=== PATIENT | male | born 1970 | race Caucasian/White ===

== ENCOUNTER 2016-08-21 14:22 | Emergency (ER) | payer OTHER ==
[2016-08-21 14:33] VITALS: RESP 18
[2016-08-21 14:58] LABS: Basophils % (A) 1 %; CH 30.9; CHCM 34.5; Eosinophils # (A) 0.1 k/uL (0-0.7); Eosinophils % (A) 2 %; HCT 46.9 % (39.0-53.0); HDW 2.65; HGB 15.4 gm/dL (13.0-17.5); Luc # (Auto) 0.13; Luc % (Auto) 2; Lymphocytes # (A) 1.5 k/uL (1.0-4.8); Lymphocytes % (A) 26 %; MCH 29.6 pg (25.0-35.0); MCHC 32.9 g/dL (31.0-37.0); MCV 89.9 fL (80.0-100.0); Mean Platelet Volume 8.7; Monocytes # (A) 0.4 k/uL (0-1.0); Monocytes % (A) 6 %; Neutrophils # (A) 3.7 k/uL (1.3-7.7); Neutrophils % (A) 62 %; RBC 5.21 m/uL (4.30-5.90); RDW 12.9 % (11.5-15.5); WBC 5.9 k/uL (3.8-10.6); WBC (Perox) 5.69
[2016-08-21 15:07] LABS: ALT 63 U/L (21-72); AST 33 U/L (17-59); Alkaline Phosphatase 91 U/L (38-126); Anion Gap 13 mmol/L; Blood Urea Nitrogen 16 mg/dL (9-20); Calcium 9.4 mg/dL (8.4-10.2); Carbon Dioxide 23 mmol/L (22-30); Chloride 104 mmol/L (98-107); Glucose 147 mg/dL (74-99); Magnesium 1.4 mg/dL (1.6-2.3); Non-African American GFR(MDRD) >60 (>60 ml/min/1.73 sqM); Sodium 140 mmol/L (137-145); Total Bilirubin 0.6 mg/dL (0.2-1.3); Total Protein 7.5 g/dL (6.3-8.2)
[2016-08-21 15:08] LABS: Partial Thromboplastin Time 24.3 sec (22.0-30.0); Prothrombin Time 10.6 sec (9.0-12.0)
--- NOTE | 2016-08-21 15:08 | ED ---
Chest Pain HPI - General Chief Complaint: Chest Pain Stated Complaint: SOB/Chest Pain Time Seen by Provider: 08/21/16 14:28 Source: patient, RN notes reviewed Mode of arrival: wheelchair Limitations: no limitations - History of Present Illness Initial Comments: Is a 45-year-old male with a history of heart disease and a quadruple bypass who states he had the onset about one hour prior to admission of retrosternal chest tightness. He states was low-grade in severity didn't really get worse with movement or activity was associated hour with shortness of breath. He states it started over and hour prior to admission and actually did not resolve until he was in the emergency department and placed on oxygen. He states it felt very similar to what he had with his prior SC prior to his bypass. He denies any cough phlegm fevers chills or sweats. No other complaints MD Complaint: chest pain - Related Data Home Medications Medication Instructions Recorded Confirmed Diltiazem HCl [Diltiazem 24Hr ER] 120 mg PO DAILY 04/20/16 08/21/16 Furosemide [Lasix] 40 mg PO DAILY PRN 04/20/16 08/21/16 Nitroglycerin Sl Tabs [Nitrostat] 0.4 mg SL Q5M PRN 04/20/16 08/21/16 Metoprolol Tartrate [Lopressor] 50 mg PO BID 08/21/16 08/21/16 Previous Rx's Medication Instructions Recorded Aspirin 81 mg PO DAILY #30 chew 06/04/15 Atorvastatin [Lipitor] 80 mg PO DAILY #30 tab 06/04/15 Clopidogrel [Plavix] 75 mg PO DAILY #30 tab 06/04/15 Allergies Allergy/AdvReac Type Severity Reaction Status Date / Time No Known Allergies Allergy Verified 08/21/16 14:53 Review of Systems ROS Statement: Those systems with pertinent positive or pertinent negative responses have been documented in the HPI. ROS Other: All systems not noted in ROS Statement are negative. EKG Findings - EKG Results: EKG: interpreted by TNAIA (Sinus rhythm with a rate of 78 MI interval 166 QRS duration 108 daily since QTC of 354/43 old inferior changes no acute ST-T wave elevation or depression seen at this time.) Past Medical History Past Medical History: Chest Pain / Angina, Hyperlipidemia, Hypertension, Myocardial Infarction ([place]), Osteoarthritis ([place]) Additional Past Medical History / Comment(s): 9-15-15 STEMI -WENT TO [employer]- RECEIVED STENT TO CIRC. GOUT, ARTHRITIS IN HANDS. STATED CAN'T DRINK MILK(GETS SEVERE UPSET STOMACH) BUT CAN EAT CHEESE Last Myocardial Infarction Date:: 04/28/2015 History of Any Multi-Drug Resistant Organisms: None Reported Past Surgical History: Coronary Bypass/CABG, Heart Catheterization With Stent, Orthopedic Surgery Additional Past Surgical History / Comment(s): 04-28-15 HEART CATH,STENT TO CIRC , 06/04/16 4 vessel CABG, RT KNEE ARTHROSOCPY.WISDOM TEETH Past Anesthesia/Blood Transfusion Reactions: No Reported Reaction Additional Past Anesthesia/Blood Transfusion Reaction / Comment(s): patient states he has never had a blood transfusion. Date of Last Stent Placement:: 04/28/15 Past Psychological History: No Psychological Hx Reported Additional Psychological History / Comment(s): 2008 HAD A FEW PANIC ATTATCKS NONE SINCE. 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 Smoking Status: Former smoker Past Alcohol Use History: None Reported Additional Past Alcohol Use History / Comment(s): STARTED SMOKING AT AGE 23- WORKED UP TO 3 PPD, QUIT 2006. PT states he has had no alcohol since 04/28/15. Past Drug Use History: Marijuana Additional Drug Use History / Comment(s): Pt states he smokes marijuana on occasion. last smoked couple days ago to help with sleep. - Past Family History Father Family Medical History: Congestive Heart Failure (CHF), COPD, Coronary Artery Disease (CAD), Diabetes Mellitus, Myocardial Infarction ([place]) Additional Family Medical History / Comment(s): EMPHYSEMA Mother Family Medical History: Skin Disorder Additional Family Medical History / Comment(s): ECTODERMAL DYSPLAGIA, ORTHOPEDIC SX General Exam - General Exam Comments Initial Comments: This is a well-developed well-nourished awake alert oriented times 3 male Limitations: no limitations General appearance: alert, in no apparent distress Head exam: Present: atraumatic, normocephalic, normal inspection Eye exam: Present: normal appearance, PERRL, EOMI. Absent: scleral icterus, conjunctival injection, periorbital swelling ENT exam: Present: normal exam, mucous membranes moist Neck exam: Present: normal inspection. Absent: tenderness, meningismus, lymphadenopathy Respiratory exam: Present: normal lung sounds bilaterally. Absent: respiratory distress, wheezes, rales, rhonchi, stridor Cardiovascular Exam: Present: regular rate, normal rhythm, normal heart sounds. Absent: systolic murmur, diastolic murmur, rubs, gallop, clicks GI/Abdominal exam: Present: soft, normal bowel sounds. Absent: distended, tenderness, guarding, rebound, rigid Extremities exam: Present: normal inspection, full ROM, normal capillary refill. Absent: tenderness, pedal edema, joint swelling, calf tenderness Back exam: Present: normal inspection Neurological exam: Present: alert, oriented X3, CN II-XII intact Psychiatric exam: Present: normal affect, normal mood Skin exam: Present: warm, dry, intact, normal color. Absent: rash Course Vital Signs 08/21/16 08/21/16 14:27 15:28 Temperature 98.0 F Pulse Rate 83 68 Respiratory 18 Rate Blood Pressure 136/63 112/62 O2 Sat by Pulse 96 95 Oximetry Chest Pain MDM - MDM I did review the x-ray report no acute findings. The patient is pain-free and was given all information regarding his labs and x-rays. He does not want to be admitted although I did offer him admission. He is agreed to accept the responsibility for any adverse outcomes. He will instead follow up with his doctor next week. He was cautioned to return if any problems for any recurrent chest pain. He was noted be hypomagnesemic he will be taking supplements he has had this happen to him before. Disposition Clinical Impression: Chest pain, Hypomagnesemia Disposition: HOME SELF-CARE Condition: Good Instructions: Chest Pain (ED)
[2016-08-21] MEDS ORDERED: ASPIRIN 81 MG CHEW PO STA (15:12)
[2016-08-21 15:16] LABS: Creatine Kinase 129 U/L (55-170)
--- NOTE | 2016-08-21 15:23 | XR ---
EXAMINATION TYPE: XR chest 2V DATE OF EXAM: 08/21/2016 3:10 PM COMPARISON: 04/20/2016 HISTORY: Chest pain TECHNIQUE: Frontal and lateral views of the chest are obtained. FINDINGS: Heart and mediastinum are normal. Lungs are clear of consolidation. There is no evidence o f pleural effusion. There are no hilar masses. There is no heart failure. There are sternal wires. IMPRESSION: No active cardiopulmonary disease. Mild fibrotic changes noted at the left lung base. No change compared to old exam.
[2016-08-21 15:30] LABS: Troponin I <0.012 ng/mL (0.000-0.034)
[2016-08-21 16:51] VITALS: BP 113/58; PULSE 58; TEMP 97.8
== END 2016-08-21 16:51 | disposition home or self-care (01) ==
LOC: EC 14:22
DX: R07.89 Other chest pain (principal); E83.42 Hypomagnesemia; I10 Essential (primary) hypertension; I25.2 Old myocardial infarction; E78.5 Hyperlipidemia, unspecified; M19.042 Primary osteoarthritis, left hand; M19.041 Primary osteoarthritis, right hand; F12.90 Cannabis use, unspecified, uncomplicated; Z87.891 Personal history of nicotine dependence; Z95.1 Presence of aortocoronary bypass graft; Z95.5 Presence of coronary angioplasty implant and graft; Z79.82 Long term (current) use of aspirin; Z79.02 Long term (current) use of antithrombotics/antiplatelets
CPT/HCPCS: 36415; 71020; 80053; 82550; 82553; 83735; 84484; 85025; 85610; 85730; 93005; 99285

== ENCOUNTER 2016-08-28 11:20 | Observation (INO) | payer OTHER ==
[2016-08-28] MEDS ORDERED: SODIUM CHLORIDE 0.9% 500 ML IV STA (11:34)
[2016-08-28] MEDS ORDERED: SODIUM CHLORIDE 0.9% 1,000 ML IV STA (11:34)
--- NOTE | 2016-08-28 11:35 | ED ---
General Adult HPI - General Chief complaint: Arrhythmia/Palpitations Stated complaint: HTN,fast heart rate Time Seen by Provider: 08/28/16 11:33 Source: patient, RN notes reviewed, old records reviewed Mode of arrival: wheelchair Limitations: no limitations - History of Present Illness Initial comments: This is a 45-year-old male the ER for evaluation of chest pain, palpitations. Patient does have significant heart disease history with CABG, CAD. Patient has no recent nausea or vomiting, no recent fevers, no recent shortness of breath, or congestion, no recent travel history. Patient is taking all medications as prescribed. Patient was in hospital about a week ago for exact similar symptoms. Patient states this time is present with elevated heart rate which she was more concerned about. No new medications, no stopping of any prior medications - Related Data Home Medications Medication Instructions Recorded Confirmed Diltiazem HCl [Diltiazem 24Hr ER] 120 mg PO DAILY 04/20/16 08/28/16 Furosemide [Lasix] 40 mg PO DAILY PRN 04/20/16 08/28/16 Nitroglycerin Sl Tabs [Nitrostat] 0.4 mg SUBLINGUAL Q5M PRN 04/20/16 08/28/16 Metoprolol Tartrate [Lopressor] 50 mg PO BID 08/21/16 08/28/16 Aspirin EC [Ecotrin Low Dose] 81 mg PO DAILY 08/28/16 08/28/16 Atorvastatin [Lipitor] 80 mg PO HS 08/28/16 08/28/16 Magnesium Oxide [Mag-Ox] 250 mg PO HS 08/28/16 08/28/16 Previous Rx's Medication Instructions Recorded Clopidogrel [Plavix] 75 mg PO DAILY #30 tab 06/04/15 Allergies Allergy/AdvReac Type Severity Reaction Status Date / Time No Known Allergies Allergy Verified 08/28/16 12:08 Review of Systems ROS Statement: Those systems with pertinent positive or pertinent negative responses have been documented in the HPI. ROS Other: All systems not noted in ROS Statement are negative. 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 GOUT, ARTHRITIS IN HANDS. STATED CAN'T DRINK MILK(GETS SEVERE UPSET STOMACH) BUT CAN EAT CHEESE Last Myocardial Infarction Date:: 04/28/2015 History of Any Multi-Drug Resistant Organisms: None Reported Past Surgical History: Coronary Bypass/CABG, Heart Catheterization With Stent, Orthopedic Surgery Additional Past Surgical History / Comment(s): 04-28-15 HEART CATH,STENT TO CIRC , 06/04/16 4 vessel CABG, RT KNEE ARTHROSOCPY.WISDOM TEETH Past Anesthesia/Blood Transfusion Reactions: No Reported Reaction Additional Past Anesthesia/Blood Transfusion Reaction / Comment(s): patient states he has never had a blood transfusion. Date of Last Stent Placement:: 04/28/15 Past Psychological History: No Psychological Hx Reported Additional Psychological History / Comment(s): 2007 HAD A FEW PANIC ATTATCKS NONE SINCE. 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 Smoking Status: Former smoker Past Alcohol Use History: None Reported Additional Past Alcohol Use History / Comment(s): STARTED SMOKING AT AGE 23- WORKED UP TO 3 PPD, QUIT 2006. PT states he has had no alcohol since 04/28/15. Past Drug Use History: Marijuana Additional Drug Use History / Comment(s): Pt states he smokes marijuana on occasion. last smoked couple days ago to help with sleep. - Past Family History Father Family Medical History: Congestive Heart Failure (CHF), COPD, Coronary Artery Disease (CAD), Diabetes Mellitus, Myocardial Infarction ([place]) Additional Family Medical History / Comment(s): EMPHYSEMA Mother Family Medical History: Skin Disorder Additional Family Medical History / Comment(s): ECTODERMAL DYSPLAGIA, ORTHOPEDIC SX General Exam Limitations: no limitations General appearance: alert, in no apparent distress, anxious Head exam: Present: atraumatic, normocephalic, normal inspection Eye exam: Present: normal appearance, PERRL, EOMI. Absent: scleral icterus, conjunctival injection, periorbital swelling ENT exam: Present: normal exam, mucous membranes moist Neck exam: Present: normal inspection. Absent: tenderness, meningismus, lymphadenopathy Respiratory exam: Present: normal lung sounds bilaterally. Absent: respiratory distress, wheezes, rales, rhonchi, stridor Cardiovascular Exam: Present: normal rhythm, tachycardia, normal heart sounds. Absent: systolic murmur, diastolic murmur, rubs, gallop, clicks GI/Abdominal exam: Present: soft, normal bowel sounds. Absent: distended, tenderness, guarding, rebound, rigid Extremities exam: Present: normal inspection, full ROM, normal capillary refill. Absent: tenderness, pedal edema, joint swelling, calf tenderness Back exam: Present: normal inspection Neurological exam: Present: alert, oriented X3, CN II-XII intact Psychiatric exam: Present: normal affect, normal mood Skin exam: Present: warm, dry, intact, normal color. Absent: rash Course Vital Signs 08/28/16 08/28/16 08/28/16 11:25 11:46 12:34 Temperature 96.9 F L Pulse Rate 120 H 97 70 Respiratory 18 18 18 Rate Blood Pressure 145/87 140/63 139/58 O2 Sat by Pulse 94 L 97 96 Oximetry - Reevaluation(s) Reevaluation #1: 08/28/16 14:05 For the most part at this time patient remains improved, asymptomatic EKG Findings - EKG Comments: EKG Findings:: EKG shows sinus tachycardia rate 110, [place] 154, QRS 104, QTC 438 Medical Decision Making - Medical Decision Making 45 the ER with significant history of heart disease, coming in with chest pain and tachycardia and palpitations. She was here last week for similar symptoms and discharged home, patient had recurrence of symptoms today. EKG initially is negative, troponin is negative a patient with history of CABG will be admitted for cardiac enzymes, serial testing and admission - Lab Data Result diagrams: 08/28/16 11:45 08/28/16 11:45 Lab Results 08/28/16 08/28/16 08/28/16 Range/Units 11:45 11:45 11:45 WBC 5.8 (3.8-10.6) k/uL RBC 5.22 (4.30-5.90) m/uL Hgb 15.4 (13.0-17.5) gm/dL Hct 46.0 (39.0-53.0) % MCV 88.1 (80.0-100.0) fL MCH 29.4 (25.0-35.0) pg MCHC 33.4 (31.0-37.0) g/dL RDW 13.2 (11.5-15.5) % Plt Count 153 (150-450) k/uL Neutrophils % 56 % Lymphocytes % 28 % Monocytes % 8 % Eosinophils % 3 % Basophils % 1 % Neutrophils # 3.3 (1.3-7.7) k/uL Lymphocytes # 1.6 (1.0-4.8) k/uL Monocytes # 0.5 (0-1.0) k/uL Eosinophils # 0.2 (0-0.7) k/uL Basophils # 0.1 (0-0.2) k/uL PT (9.0-12.0) sec INR (<1.1) APTT (22.0-30.0) sec D-Dimer (<0.60) mg/L FEU Sodium 143 (137-145) mmol/L Potassium 4.1 (3.5-5.1) mmol/L Chloride 105 (98-107) mmol/L Carbon Dioxide 24 (22-30) mmol/L Anion Gap 14 mmol/L BUN 17 (9-20) mg/dL Creatinine 1.00 (0.66-1.25) mg/dL Est GFR (MDRD) Af Amer >60 (>60 ml/min/1.73 sqM) Est GFR (MDRD) Non-Af >60 (>60 ml/min/1.73 sqM) Glucose 132 H (74-99) mg/dL Calcium 9.5 (8.4-10.2) mg/dL Phosphorus 2.5 (2.5-4.5) mg/dL Magnesium 1.8 (1.6-2.3) mg/dL Total Bilirubin 0.7 (0.2-1.3) mg/dL AST 41 (17-59) U/L ALT 69 (21-72) U/L Alkaline Phosphatase 106 (38-126) U/L Total Creatine Kinase 161 (55-170) U/L CK-MB (CK-2) 1.3 (0.0-2.4) ng/mL CK-MB (CK-2) Rel Index 0.8 Troponin I <0.012 (0.000-0.034) ng/mL Total Protein 8.0 (6.3-8.2) g/dL Albumin 4.3 (3.5-5.0) g/dL Lipase 83 (23-300) U/L Urine Color Urine Appearance (Clear) Urine pH (5.0-8.0) Ur Specific [place] (1.001-1.035) Urine Protein (Negative) Urine Glucose (UA) (Negative) Urine Ketones (Negative) Urine Blood (Negative) Urine Nitrate (Negative) Urine Bilirubin (Negative) Urine Urobilinogen (<2.0) mg/dL Ur Leukocyte Esterase (Negative) 08/28/16 08/28/16 Range/Units 11:45 12:39 WBC (3.8-10.6) k/uL RBC (4.30-5.90) m/uL Hgb (13.0-17.5) gm/dL Hct (39.0-53.0) % MCV (80.0-100.0) fL MCH (25.0-35.0) pg MCHC (31.0-37.0) g/dL RDW (11.5-15.5) % Plt Count (150-450) k/uL Neutrophils % % Lymphocytes % % Monocytes % % Eosinophils % % Basophils % % Neutrophils # (1.3-7.7) k/uL Lymphocytes # (1.0-4.8) k/uL Monocytes # (0-1.0) k/uL Eosinophils # (0-0.7) k/uL Basophils # (0-0.2) k/uL PT 10.1 (9.0-12.0) sec INR 1.0 (<1.1) APTT 23.7 (22.0-30.0) sec D-Dimer 0.42 (<0.60) mg/L FEU Sodium (137-145) mmol/L Potassium (3.5-5.1) mmol/L Chloride (98-107) mmol/L Carbon Dioxide (22-30) mmol/L Anion Gap mmol/L BUN (9-20) mg/dL Creatinine (0.66-1.25) mg/dL Est GFR (MDRD) Af Amer (>60 ml/min/1.73 sqM) Est GFR (MDRD) Non-Af (>60 ml/min/1.73 sqM) Glucose (74-99) mg/dL Calcium (8.4-10.2) mg/dL Phosphorus (2.5-4.5) mg/dL Magnesium (1.6-2.3) mg/dL Total Bilirubin (0.2-1.3) mg/dL AST (17-59) U/L ALT (21-72) U/L Alkaline Phosphatase (38-126) U/L Total Creatine Kinase (55-170) U/L CK-MB (CK-2) (0.0-2.4) ng/mL CK-MB (CK-2) Rel Index Troponin I (0.000-0.034) ng/mL Total Protein (6.3-8.2) g/dL Albumin (3.5-5.0) g/dL Lipase (23-300) U/L Urine Color Yellow Urine Appearance Clear (Clear) Urine pH 5.5 (5.0-8.0) Ur Specific [place] 1.021 (1.001-1.035) Urine Protein Trace H (Negative) Urine Glucose (UA) Negative (Negative) Urine Ketones Negative (Negative) Urine Blood Negative (Negative) Urine Nitrate Negative (Negative) Urine Bilirubin Negative (Negative) Urine Urobilinogen 2.0 (<2.0) mg/dL Ur Leukocyte Esterase Negative (Negative) - Radiology Data Radiology results: report reviewed, image reviewed Critical Care Time Critical Care Time: Yes Total Critical Care Time: 31 Disposition Clinical Impression: Chest pain Disposition: ADMITTED IP TO THIS [facility] Condition: Undetermined Referrals: Noel Nieves DO [Primary Care Provider] - 1-2 days
[2016-08-28 12:02] LABS: Basophils # (A) 0.1 k/uL (0-0.2); Basophils % (A) 1 %; CH 30.4; CHCM 34.7; Eosinophils # (A) 0.2 k/uL (0-0.7); Eosinophils % (A) 3 %; HDW 2.64; HGB 15.4 gm/dL (13.0-17.5); Luc # (Auto) 0.24; Luc % (Auto) 4; Lymphocytes # (A) 1.6 k/uL (1.0-4.8); Lymphocytes % (A) 28 %; MCH 29.4 pg (25.0-35.0); MCHC 33.4 g/dL (31.0-37.0); MCV 88.1 fL (80.0-100.0); Mean Platelet Volume 8.8; Monocytes # (A) 0.5 k/uL (0-1.0); Monocytes % (A) 8 %; Neutrophils # (A) 3.3 k/uL (1.3-7.7); Neutrophils % (A) 56 %; RBC 5.22 m/uL (4.30-5.90); RDW 13.2 % (11.5-15.5); WBC 5.8 k/uL (3.8-10.6)
--- NOTE | 2016-08-28 12:06 | XR ---
EXAMINATION TYPE: XR chest 2V DATE OF EXAM: 08/28/2016 11:56 AM COMPARISON: 08/21/2016 HISTORY: 45-year-old male with a chest pressure and weakness TECHNIQUE: PA and lateral views FINDINGS: Median sternotomy wires are present. Heart remains upper limits of normal in size. Aorta within jim l limits. Diffuse interstitial prominence is unchanged. No consolidation or pleural effusion. IMPRESSION: Chronic changes without acute cardiopulmonary process.
[2016-08-28 12:12] LABS: ALT 69 U/L (21-72); AST 41 U/L (17-59); Alkaline Phosphatase 106 U/L (38-126); Anion Gap 14 mmol/L; Blood Urea Nitrogen 17 mg/dL (9-20); Calcium 9.5 mg/dL (8.4-10.2); Carbon Dioxide 24 mmol/L (22-30); Chloride 105 mmol/L (98-107); Glucose 132 mg/dL (74-99); Magnesium 1.8 mg/dL (1.6-2.3); Non-African American GFR(MDRD) >60 (>60 ml/min/1.73 sqM); Phosphorous 2.5 mg/dL (2.5-4.5); Potassium 4.1 mmol/L (3.5-5.1); Sodium 143 mmol/L (137-145); Total Bilirubin 0.7 mg/dL (0.2-1.3)
[2016-08-28 12:23] LABS: Creatine Kinase 161 U/L (55-170)
[2016-08-28 12:26] LABS: Partial Thromboplastin Time 23.7 sec (22.0-30.0); Prothrombin Time 10.1 sec (9.0-12.0)
[2016-08-28 12:36] LABS: Creatine Kinase MB 1.3 ng/mL (0.0-2.4); Troponin I <0.012 ng/mL (0.000-0.034)
[2016-08-28 12:49] LABS: Appearance,Urine Clear (Clear); Bilirubin,Urine Negative (Negative); Glucose,Urine (UA) Negative (Negative); Ketones,Urine Negative (Negative); Leukocyte Esterase,Urine Negative (Negative); Nitrite,Urine Negative (Negative); PH, Urine 5.5 (5.0-8.0); Protein,Urine Trace (Negative); Specific Gravity,Urine 1.021 (1.001-1.035); UA Billing (MACRO vs. MICRO) CHEM
[2016-08-28] MEDS ORDERED: HEPARIN SODIUM,PORCINE 5,000 UNIT/ML 1 ML VIAL IV ONE (14:03)
[2016-08-28] MEDS ORDERED: ASPIRIN 81 MG CHEW PO STA (14:03)
[2016-08-28] MEDS ORDERED: NITROGLYCERIN SL TABS 0.4 MG TAB SUBLINGUAL PRN ×2 (14:03→17:39)
[2016-08-28] MEDS ORDERED: HEPARIN SODIUM,PORCINE 5,000 UNIT/ML 1 ML VIAL IV PRN (14:03)
[2016-08-28] MEDS ORDERED: MORPHINE SULFATE 4 MG/ML SYRINGE IV PRN (14:03)
[2016-08-28] MEDS ORDERED: HEPARIN SODIUM,PORCINE/D5W PMX 25,000 UNIT in DEXTROSE/WATER 1 500ML.BAG IV SCH (14:15)
[2016-08-28] MEDS ORDERED: FUROSEMIDE 40 MG TAB PO PRN (17:40)
[2016-08-28 18:21] LABS: Creatine Kinase MB 1.5 ng/mL (0.0-2.4); Troponin I 0.012 ng/mL (0.000-0.034)
[2016-08-28] MEDS ORDERED: MELATONIN 3 MG TABLET PO PRN (20:59)
[2016-08-28] MEDS ORDERED: DOCUSATE 100 MG CAP PO PRN (21:00)
[2016-08-28] MEDS ORDERED: MAGNESIUM OXIDE 250 MG TAB PO SCH (21:00)
[2016-08-28] MEDS ORDERED: ATORVASTATIN 80 MG TAB PO SCH (21:00)
[2016-08-28] MEDS: METOPROLOL TARTRATE 50 MG TAB PO SCH (21:22)
[2016-08-29 01:01] LABS: Creatine Kinase 147 U/L (55-170)
[2016-08-29 01:14] LABS: Creatine Kinase MB 1.3 ng/mL (0.0-2.4); Troponin I <0.012 ng/mL (0.000-0.034)
[2016-08-29 07:01] LABS: Basophils # (A) 0.1 k/uL (0-0.2); Basophils % (A) 1 %; CH 29.9; CHCM 33.2; Eosinophils # (A) 0.2 k/uL (0-0.7); Eosinophils % (A) 4 %; HCT 45.6 % (39.0-53.0); HDW 2.62; HGB 15.1 gm/dL (13.0-17.5); Luc # (Auto) 0.19; Luc % (Auto) 4; Lymphocytes # (A) 1.9 k/uL (1.0-4.8); Lymphocytes % (A) 33 %; MCHC 33.1 g/dL (31.0-37.0); MCV 90.5 fL (80.0-100.0); Mean Platelet Volume 9.1; Monocytes # (A) 0.5 k/uL (0-1.0); Monocytes % (A) 8 %; Neutrophils # (A) 2.8 k/uL (1.3-7.7); Neutrophils % (A) 50 %; RBC 5.04 m/uL (4.30-5.90); RDW 13.1 % (11.5-15.5); WBC 5.5 k/uL (3.8-10.6); WBC (Perox) 5.49
[2016-08-29 07:16] LABS: Cholesterol 133 mg/dL (<200); HDL Cholesterol 51 mg/dL (40-60); Triglycerides 89 mg/dL (<150)
[2016-08-29 08:11] VITALS: RESP 18
[2016-08-29] MEDS ORDERED: ASPIRIN 81 MG CHEW PO SCH (09:00)
[2016-08-29] MEDS ORDERED: CLOPIDOGREL 75 MG TAB PO SCH (09:00)
[2016-08-29] MEDS ORDERED: ASPIRIN 325 MG TAB PO SCH (09:00)
[2016-08-29] MEDS ORDERED: DILTIAZEM CD 120 MG CAP.ER.24H PO SCH (09:00)
[2016-08-29] MEDS ORDERED: DILTIAZEM CD 180 MG CAP.ER.24H PO SCH (09:00)
--- NOTE | 2016-08-29 09:03 | P.CRDCN ---
History of Present Illness Consult date: 08/29/16 History of present illness: This is a pleasant 45-year-old gentleman with a past medical history significant for CAD and status post CABG in May 2015 where he received CHAVARRIA to LAD, radial artery to ramus intermedius, SVG to RCA, and SVG to OM, as well as hypertension, dyslipidemia, and obesity, presented to the hospital not feeling well. He was feeling dizzy and lightheaded and also he was experiencing heart racing and fluttering. He checked his pulse at home and that was about 120. Upon presenting to the hospital his pulse was about 110 and he was in sinus tachycardia. He did not experience any symptoms of chest pain or discomfort or shortness of breath. The workup in the emergency room showed normal cardiac enzymes. The EKG showed sinus rhythm with T-wave inversion in the high lateral leads. I am going to increase the dose of Cardizem CD 180 mg from 120 mg daily. From the cardiac standpoint, the patient can be discharged home. 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 GOUT, ARTHRITIS IN HANDS. STATED CAN'T DRINK MILK(GETS SEVERE UPSET STOMACH) BUT CAN EAT CHEESE Last Myocardial Infarction Date:: 04/28/2015 History of Any Multi-Drug Resistant Organisms: None Reported Past Surgical History: Coronary Bypass/CABG, Heart Catheterization With Stent, Orthopedic Surgery Additional Past Surgical History / Comment(s): 04-28-15 HEART CATH,STENT TO CIRC , 06/28/15 4 vessel CABG, RT KNEE ARTHROSOCPY.WISDOM TEETH Past Anesthesia/Blood Transfusion Reactions: No Reported Reaction Additional Past Anesthesia/Blood Transfusion Reaction / Comment(s): patient states he has never had a blood transfusion. Date of Last Stent Placement:: 04/28/15 Past Psychological History: No Psychological Hx Reported Additional Psychological History / Comment(s): 2008 HAD A FEW PANIC ATTATCKS NONE SINCE. 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 Smoking Status: Former smoker Past Alcohol Use History: None Reported Additional Past Alcohol Use History / Comment(s): STARTED SMOKING AT AGE 23- WORKED UP TO 3 PPD, QUIT 2006. PT states he has had no alcohol since 04/28/15. Past Drug Use History: Marijuana Additional Drug Use History / Comment(s): Pt states he smokes marijuana on occasion. can go for weeks without using, trying to lose weight. - Past Family History Father Family Medical History: Congestive Heart Failure (CHF), COPD, Coronary Artery Disease (CAD), Diabetes Mellitus, Myocardial Infarction ([place]) Additional Family Medical History / Comment(s): EMPHYSEMA Mother Family Medical History: Skin Disorder Additional Family Medical History / Comment(s): ECTODERMAL DYSPLAGIA, ORTHOPEDIC SX Medications and Allergies Home Medications Medication Instructions Recorded Confirmed Type Diltiazem HCl [Diltiazem 24Hr ER] 120 mg PO DAILY 04/20/16 08/28/16 History Furosemide [Lasix] 40 mg PO DAILY PRN 04/20/16 08/28/16 History Nitroglycerin Sl Tabs [Nitrostat] 0.4 mg SUBLINGUAL Q5M PRN 04/20/16 08/28/16 History Metoprolol Tartrate [Lopressor] 50 mg PO BID 08/21/16 08/28/16 History Aspirin EC [Ecotrin Low Dose] 81 mg PO DAILY 08/28/16 08/28/16 History Atorvastatin [Lipitor] 80 mg PO HS 08/28/16 08/28/16 History Magnesium Oxide [Mag-Ox] 250 mg PO HS 08/28/16 08/28/16 History Allergies Allergy/AdvReac Type Severity Reaction Status Date / Time No Known Allergies Allergy Verified 08/28/16 12:08 Physical Exam Vitals: Vital Signs Temp Pulse Pulse Resp BP BP Pulse Ox 08/29/16 08:00 98.1 F 65 18 106/67 96 08/29/16 04:00 97.8 F 61 16 125/68 95 08/29/16 00:00 58 L 18 08/28/16 23:20 98.4 F 68 18 120/58 95 08/28/16 19:27 98.1 F 74 18 127/60 95 08/28/16 19:23 18 08/28/16 15:24 97 08/28/16 15:21 98.1 F 18 130/59 96 08/28/16 14:34 98.3 F 68 20 126/60 98 Intake and Output 08/28/16 08/29/1617 22:59 06:59 14:59 Intake Total 919.264 385 Balance 919.264 385 Intake: IV 80 385 0.9 NS @ KVO 80 160 Heparin Sodium,Porcine/ 225 D5w Pmx 25,000 unit In Dextrose/Water 1 500ml. bag @ 7.3 UNITS/KG/HR 19. 99 mls/hr IV .Q24H [facility] Rx #:[id number] Intake, IV Titration 139.264 Amount Heparin Sodium,Porcine/ 139.264 D5w Pmx 25,000 unit In Dextrose/Water 1 500ml. bag @ 7.3 UNITS/KG/HR 19. 99 mls/hr IV .Q24H [facility] Rx #:[id number] Oral 700 Other: Voiding Method Toilet Toilet # Voids 1 3 Weight 137.8 kg - Constitutional General appearance: no acute distress - Respiratory Respiratory: bilateral: CTA - Cardiovascular Rhythm: regular Heart sounds: normal: S1, S2 Results 08/29/16 06:23 08/28/16 11:45 Cardiac Enzymes 08/28/16 08/29/16 Range/Units 17:29 00:14 CK-MB (CK-2) 1.5 1.3 (0.0-2.4) ng/mL Troponin I 0.012 <0.012 (0.000-0.034) ng/mL Coagulation 08/28/16 Range/Units 20:30 APTT 30.8 H (22.0-30.0) sec Lipids 08/29/16 Range/Units 06:25 Triglycerides 89 (<150) mg/dL Cholesterol 133 (<200) mg/dL HDL Cholesterol 51 (40-60) mg/dL CBC 08/29/16 Range/Units 06:23 WBC 5.5 (3.8-10.6) k/uL RBC 5.04 (4.30-5.90) m/uL Hgb 15.1 (13.0-17.5) gm/dL Hct 45.6 (39.0-53.0) % Plt Count 124 L (150-450) k/uL Current Medications Generic Name Dose Route Start Last Admin Trade Name Freq PRN Reason Stop Dose Admin Aspirin 81 mg 08/29/16 09:00 Aspirin PO DAILY [facility] Atorvastatin Calcium 80 mg 08/28/16 21:00 08/28/16 21:22 Lipitor PO 80 mg HS [facility]O Administration Clopidogrel Bisulfate 75 mg 08/29/16 09:00 Plavix PO DAILY [facility] Docusate Sodium 100 mg 08/28/16 21:00 08/28/16 21:37 Colace PO 100 mg HS PRN Administration Constipation Furosemide 40 mg 08/28/16 17:40 Lasix PO DAILY PRN Edema Heparin Sodium (Porcine) 0 unit 08/28/16 14:03 08/28/16 21:29 Heparin IV 4,000 unit PER PROTOCOL PRN Administration Low PTT Protocol Heparin Sodium/Dextrose 25,000 500 mls @ 19.99 mls/hr 08/28/16 14:15 21:30 unit/ IV Solution IV 10.3 units/kg/hr .Q24H [facility] 28.21 mls/hr Protocol Titration 7.3 UNITS/KG/HR Magnesium Oxide 250 mg 08/28/16 21:00 08/28/16 21:22 Mag-Ox PO 250 mg HS [facility]O Administration Melatonin 3 mg 08/28/16 20:59 08/28/16 21:37 Melatonin PO 3 mg HS PRN Administration Insomnia Metoprolol Tartrate 50 mg 08/28/16 21:00 08/28/16 21:22 Lopressor PO 50 mg BID [facility] Administration Morphine Sulfate 4 mg 08/28/16 14:03 Morphine Sulfate (Inj) IV Q4HR PRN Chest Pain Nitroglycerin 0.4 mg 08/28/16 14:03 Nitrostat SUBLINGUAL Q5M PRN Chest Pain Nitroglycerin 0.4 mg 08/28/16 17:39 Nitrostat SUBLINGUAL Q5M PRN Chest Pain Intake and Output 08/28/16 08/29/16 08/29/16 22:59 06:59 14:59 Intake Total 919.264 385 Balance 919.264 385 Intake: IV 80 385 0.9 NS @ KVO 80 160 Heparin Sodium,Porcine/ 225 D5w Pmx 25,000 unit In Dextrose/Water 1 500ml. bag @ 7.3 UNITS/KG/HR 19. 99 mls/hr IV .Q24H [facility] Rx #:[id number] Intake, IV Titration 139.264 Amount Heparin Sodium,Porcine/ 139.264 D5w Pmx 25,000 unit In Dextrose/Water 1 500ml. bag @ 7.3 UNITS/KG/HR 19. 99 mls/hr IV .Q24H [facility] Rx #:[id number] Oral 700 Other: Voiding Method Toilet Toilet # Voids 1 3 Weight 137.8 kg 08/29/16 06:23 Assessment and Plan Plan: Assessment #1 CAD and status post CABG #2 sinus tachycardia #3 systemic hypertension #4 dyslipidemia Plan #1 increase the dose of Cardizem CD #2 from the cardiac standpoint he can be discharged home
[2016-08-29] MEDS: METOPROLOL TARTRATE 50 MG TAB PO SCH (09:12)
[2016-08-29 11:44] VITALS: BP 109/65; PULSE 57; TEMP 99.2
--- NOTE | 2016-08-29 15:54 | HP ---
DATE OF ADMISSION: 08/28/2016 PRESENTING COMPLAINT: Chest pressure. HISTORY OF PRESENTING COMPLAINT: This is a 45-year-old patient of Dr. Nieves who is known to me from prior admissions whose chronic stable medical conditions include hyperlipidemia, hypertension; also has a known history of coronary artery disease with prior bypass. Patient presents after he woke up yesterday morning with palpitations that lasted for some time. Patient went back to sleep, got up again about 11:00 and had severe episodes again. The patient did feel a little bit dizzy; he thought he may want to pass out; did have some cold sweats. Blood pressure was 143/103. Heart rate was 124. He decided to come in. There was no chest pressure. REVIEW OF SYSTEMS: CONSTITUTIONAL: Tired. HEENT: None. RESPIRATORY: None. CARDIOVASCULAR: As above. GASTROINTESTINAL: None. GENITOURINARY: None. MUSCULOSKELETAL: None. DERMATOLOGICAL: None. HEMATOLOGICAL: None. LYMPHATIC: None. PSYCHIATRY: None. NEUROLOGICAL: None. PAST MEDICAL HISTORY: 1. Coronary artery disease with bypass. 2. Hyperlipidemia. 3. Hypertension. 4. Osteoarthritis. 5. Gout. PAST SURGICAL HISTORY: Coronary artery bypass, right knee arthroscopy. SOCIAL HISTORY: Patient lives with his friend. 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 Patient smoked 3 packs a day from the age of 23; stopped in 2006. Has 1 or 2 beers occasionally. FAMILY HISTORY: Diabetes, coronary artery diabetes, congestive heart failure. ALLERGIES: NONE. HOME MEDICATIONS: 1. Nitrostat 0.4 sublingually q.5 p.r.n. 2. Lopressor 50 mg p.o. b.i.d. 3. Magnesium oxide 250 mg p.o. at bedtime. 4. Lasix 40 mg p.o. daily p.r.n. 5. Cardizem ER 120 mg p.o. daily. 6. Plavix 75 mg p.o. daily. 7. Lipitor 80 mg at bedtime. 8. Aspirin 81 mg p.o. daily. ALLERGIES: NONE. PHYSICAL EXAMINATION: VITAL SIGNS ON PRESENTATION: Temperature 96.9, pulse 120, respiration 18, blood pressure 140/87, pulse ox 94% on room air. GENERAL APPEARANCE: Well built; BMI of 49%. Lying in bed. Not in distress. EYES: Pupils equal. Conjunctivae normal. HEENT: External appearance of nose and ears normal. Oral cavity normal. NECK: JVD not raised. Mass not palpable. RESPIRATORY: Effort normal. LUNGS: Fair air entry. CARDIOVASCULAR: First and second sounds normal. No edema. ABDOMEN: Soft, non-tender. Liver and spleen not palpable. LYMPHATIC: No lymph node palpable in neck or axillae. PSYCHIATRY: Alert and oriented x3. Mood and affect normal. NEUROLOGICAL: Pupils equal. Cranial nerves grossly intact. Power and sensation grossly intact. INVESTIGATIONS: White count 5.8, hemoglobin 15.4. Potassium 4.1. BUN and creatinine are normal. Troponin is negative. EKG: Normal sinus rhythm. Some ST-segment changes, inferolateral leads. ASSESSMENT: 1. Sinus tachycardia with some ischemic changes on the EKG in a patient with known coronary artery disease. 2. Hyperlipidemia. 3. Essential hypertension. 4. Moderate obesity; body mass index of 45.8. PLAN: Cardiology, Dr. Wong, was consulted. Care was discussed with the patient. Have the patient ambulate and see how he does; go from there.
--- NOTE | 2016-08-30 09:20 | DS ---
DATE OF ADMISSION: 08/28/2016 DATE OF DISCHARGE: 08/29/2016 FINAL DIAGNOSES: 1. Possible unstable angina, patient with known coronary artery disease. 2. Coronary artery disease. 3. Hyperlipidemia. 4. Essential hypertension. 5. Morbid obesity, body mass index of 45.8. HOSPITAL COURSE: This patient presented with some palpitation, some changes on EKG, troponins are negative. Seen by Dr. Wong. Will increase patient's Cardizem. He wants to have patient see his international bank manager as an outpatient. On examination, lungs are clear. CARDIOVASCULAR: First and second sounds normal. CONSULTATION: Dr. Wong from Cardiology. DISCHARGE MEDICATIONS: 1. Plavix 75 mg a day. 2. Lasix 40 mg a day p.r.n. 3. Nitrostat 0.4 sublingual q.5 p.r.n. 4. Lopressor 50 mg p.o. b.i.d. 5. Aspirin 81 mg a day. 6. Lipitor 80 mg q.h.s. 7. Magnesium 250 mg p.o. q.h.s. 8. Cardizem CD 180 mg, new dose. 9. Melatonin 3 mg q.h.s. p.r.n. Follow up with Dr. Nieves in one week; follow up with Dr. Wong in one week. On exam, lungs are clear. CARDIOVASCULAR: First and second seconds normal.
== END 2016-08-29 15:00 | disposition home or self-care (01) ==
LOC: EC 11:20 → 3OBS 14:07
PROVIDERS: ADMIT Hospitalist; ATTEND Hospitalist
DX: I25.10 Atherosclerotic heart disease of native coronary artery without angina pectoris (principal); E78.5 Hyperlipidemia, unspecified; I10 Essential (primary) hypertension; E66.01 Morbid (severe) obesity due to excess calories; Z68.42 Body mass index [BMI] 45.0-49.9, adult; R00.0 Tachycardia, unspecified; R42 Dizziness and giddiness; I25.2 Old myocardial infarction; M19.90 Unspecified osteoarthritis, unspecified site; M10.9 Gout, unspecified; M19.042 Primary osteoarthritis, left hand; M19.041 Primary osteoarthritis, right hand; F12.90 Cannabis use, unspecified, uncomplicated; Z95.1 Presence of aortocoronary bypass graft; Z79.82 Long term (current) use of aspirin; Z79.899 Other long term (current) drug therapy; Z79.02 Long term (current) use of antithrombotics/antiplatelets; Z95.5 Presence of coronary angioplasty implant and graft; Z87.891 Personal history of nicotine dependence; Z82.49 Family history of ischemic heart disease and other diseases of the circulatory system; Z83.6 Family history of other diseases of the respiratory system; Z83.3 Family history of diabetes mellitus
CPT/HCPCS: 36415; 93005; 85379; 80061; 80053; 82550 ×2; 82553 ×2; 83690; 83735; 84100; 84484 ×2; 85025 ×2; 85610; 85730; 81003; 71020; 99291; 96376; 96361; G0378 ×2; J1644 ×2; 71010; 84439; 84443; 84481; 96365; 96366; 96375; 99285

== ENCOUNTER 2016-08-29 22:19 | Emergency (ER) | payer OTHER ==
[2016-08-29] MEDS ORDERED: SODIUM CHLORIDE 0.9% 1,000 ML IV STA (22:54)
--- NOTE | 2016-08-29 22:58 | ED ---
General Adult HPI - General Chief complaint: Arrhythmia/Palpitations Stated complaint: heart racing-revisit Time Seen by Provider: 08/29/16 22:43 Source: patient, RN notes reviewed Mode of arrival: wheelchair Limitations: no limitations - History of Present Illness Initial comments: Patient is a pleasant 45-year-old male presenting to the emergency department complaining of palpitations. Onset was an hour or so prior to arrival. Symptoms lasted around an hour and have now resolved. Patient felt his heart was racing. Patient had similar symptoms yesterday and was in the hospital. Heart rate yesterday was 120. is unclear what his heart rate was today. Patient did check his blood pressure at 150/85. No chest discomfort. No dyspnea. No history of similar symptoms prior to yesterday. No leg pain or swelling. No cough or fever. Patient admits to mild nausea and mild lightheadedness. Patient does not want any medication for this stating it is not bad enough. - Related Data Home Medications Medication Instructions Recorded Confirmed Furosemide [Lasix] 40 mg PO DAILY PRN 04/20/16 08/29/16 Nitroglycerin Sl Tabs [Nitrostat] 0.4 mg SUBLINGUAL Q5M PRN 04/20/16 08/29/16 Metoprolol Tartrate [Lopressor] 50 mg PO BID 08/21/16 08/29/16 Aspirin EC [Ecotrin Low Dose] 81 mg PO DAILY 08/28/16 08/29/16 Atorvastatin [Lipitor] 80 mg PO HS 08/28/16 08/29/16 Magnesium Oxide [Mag-Ox] 250 mg PO HS 08/28/16 08/29/16 Previous Rx's Medication Instructions Recorded Clopidogrel [Plavix] 75 mg PO DAILY #30 tab 06/04/15 Diltiazem Cd [Cardizem CD] 180 mg PO DAILY #30 cap.er.24h 08/29/16 Melatonin 3 mg PO HS PRN #0 tablet 08/29/16 Allergies Allergy/AdvReac Type Severity Reaction Status Date / Time No Known Allergies Allergy Verified 08/29/16 23:04 Review of Systems ROS Statement: Those systems with pertinent positive or pertinent negative responses have been documented in the HPI. ROS Other: All systems not noted in ROS Statement are negative. Constitutional: Denies: fever Eyes: Denies: eye pain ENT: Denies: ear pain Respiratory: Denies: cough, dyspnea Cardiovascular: Reports: palpitations. Denies: chest pain Endocrine: Denies: fatigue Gastrointestinal: Reports: nausea (Mild). Denies: abdominal pain Genitourinary: Denies: dysuria Musculoskeletal: Denies: back pain Skin: Denies: rash Neurological: Denies: weakness Past Medical History Past Medical History: Chest Pain / Angina, Hyperlipidemia, Hypertension, Myocardial Infarction (AR), Osteoarthritis (OA) Additional Past Medical History / Comment(s): 04-28-15 STEMI -WENT TO [facility]- RECEIVED STENT TO CIRC. GOUT, ARTHRITIS IN HANDS. STATED CAN'T DRINK MILK(GETS SEVERE UPSET STOMACH) BUT CAN EAT CHEESE Last Myocardial Infarction Date:: 04/28/2015 History of Any Multi-Drug Resistant Organisms: None Reported Past Surgical History: Coronary Bypass/CABG, Heart Catheterization With Stent, Orthopedic Surgery Additional Past Surgical History / Comment(s): 04-28-15 HEART CATH,STENT TO CIRC , 06/28/15 4 vessel CABG, RT KNEE ARTHROSOCPY.WISDOM TEETH Past Anesthesia/Blood Transfusion Reactions: No Reported Reaction Additional Past Anesthesia/Blood Transfusion Reaction / Comment(s): patient states he has never had a blood transfusion. Date of Last Stent Placement:: 04/28/15 Past Psychological History: No Psychological Hx Reported Additional Psychological History / Comment(s): 2008 HAD A FEW PANIC ATTATCKS NONE SINCE. 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 Smoking Status: Former smoker Past Alcohol Use History: None Reported Additional Past Alcohol Use History / Comment(s): STARTED SMOKING AT AGE 23- WORKED UP TO 3 [employer], QUIT 2006. PT states he has had no alcohol since 04/28/15. Past Drug Use History: Marijuana Additional Drug Use History / Comment(s): Pt states he smokes marijuana on occasion. can go for weeks without using, trying to lose weight. - Past Family History Father Family Medical History: Congestive Heart Failure (CHF), COPD, Coronary Artery Disease (CAD), Diabetes Mellitus, Myocardial Infarction (AR) Additional Family Medical History / Comment(s): EMPHYSEMA Mother Family Medical History: Skin Disorder Additional Family Medical History / Comment(s): ECTODERMAL DYSPLAGIA, ORTHOPEDIC SX General Exam Limitations: no limitations General appearance: alert, in no apparent distress Head exam: Present: atraumatic, normocephalic Eye exam: Present: normal appearance, PERRL ENT exam: Present: normal oropharynx Neck exam: Present: normal inspection Respiratory exam: Present: normal lung sounds bilaterally Cardiovascular Exam: Present: regular rate, normal rhythm, normal heart sounds, other (Decreased pulses right radial and left pedal secondary to previous harvesting) GI/Abdominal exam: Present: soft. Absent: tenderness Extremities exam: Present: normal inspection. Absent: pedal edema, calf tenderness Back exam: Present: normal inspection Neurological exam: Present: alert Psychiatric exam: Present: normal affect, normal mood Skin exam: Absent: rash Course Vital Signs 08/29/16 22:20 Temperature 99.3 F Pulse Rate 103 H Respiratory 20 Rate Blood Pressure 169/75 O2 Sat by Pulse 96 Oximetry EKG Findings - EKG Comments: EKG Findings:: Normal sinus rhythm 91. Normal intervals. Left axis. Normal QRS. Nonspecific T waves. Medical Decision Making - Medical Decision Making Patient reexamined and resting comfortably in bed. Patient remained symptom- free. Case discussed in detail with cardiology, Dr. Guadararma who does feel patient can be discharged with close follow-up. Patient is updated on results and need for follow-up. Patient is advised that he will need a Holter monitor. - Lab Data Result diagrams: 08/29/16 23:20 08/29/16 23:20 Lab Results 08/29/16 08/29/16 08/29/16 Range/Units 23:20 23:20 23:20 WBC 5.7 (3.8-10.6) k/uL RBC 4.90 (4.30-5.90) m/uL Hgb 14.4 (13.0-17.5) gm/dL Hct 42.9 (39.0-53.0) % MCV 87.5 (80.0-100.0) fL MCH 29.5 (25.0-35.0) pg MCHC 33.7 (31.0-37.0) g/dL RDW 13.3 (11.5-15.5) % Plt Count 139 L (150-450) k/uL Neutrophils % 67 % Lymphocytes % 20 % Monocytes % 8 % Eosinophils % 2 % Basophils % 1 % Neutrophils # 3.8 (1.3-7.7) k/uL Lymphocytes # 1.1 (1.0-4.8) k/uL Monocytes # 0.5 (0-1.0) k/uL Eosinophils # 0.1 (0-0.7) k/uL Basophils # 0.1 (0-0.2) k/uL PT (9.0-12.0) sec INR (<1.1) APTT (22.0-30.0) sec Sodium 142 (137-145) mmol/L Potassium 3.8 (3.5-5.1) mmol/L Chloride 105 (98-107) mmol/L Carbon Dioxide 25 (22-30) mmol/L Anion Gap 12 mmol/L BUN 14 (9-20) mg/dL Creatinine 0.90 (0.66-1.25) mg/dL Est GFR (MDRD) Af Amer >60 (>60 ml/min/1.73 sqM) Est GFR (MDRD) Non-Af >60 (>60 ml/min/1.73 sqM) Glucose 136 H (74-99) mg/dL Calcium 9.3 (8.4-10.2) mg/dL Magnesium 1.8 (1.6-2.3) mg/dL Total Bilirubin 0.4 (0.2-1.3) mg/dL AST 36 (17-59) U/L ALT 64 (21-72) U/L Alkaline Phosphatase 82 (38-126) U/L Total Creatine Kinase 154 (55-170) U/L CK-MB (CK-2) 1.3 (0.0-2.4) ng/mL CK-MB (CK-2) Rel Index 0.8 Troponin I <0.012 (0.000-0.034) ng/mL Total Protein 7.1 (6.3-8.2) g/dL Albumin 4.1 (3.5-5.0) g/dL TSH 3.390 (0.465-4.680) mIU/L Free T4 1.01 (0.78-2.19) ng/dL Free T3 pg/mL 4.8 (2.8-5.3) pg/ml 08/29/16 Range/Units 23:20 WBC (3.8-10.6) k/uL RBC (4.30-5.90) m/uL Hgb (13.0-17.5) gm/dL Hct (39.0-53.0) % MCV (80.0-100.0) fL MCH (25.0-35.0) pg MCHC (31.0-37.0) g/dL RDW (11.5-15.5) % Plt Count (150-450) k/uL Neutrophils % % Lymphocytes % % Monocytes % % Eosinophils % % Basophils % % Neutrophils # (1.3-7.7) k/uL Lymphocytes # (1.0-4.8) k/uL Monocytes # (0-1.0) k/uL Eosinophils # (0-0.7) k/uL Basophils # (0-0.2) k/uL PT 10.4 (9.0-12.0) sec INR 1.0 (<1.1) APTT 23.5 (22.0-30.0) sec Sodium (137-145) mmol/L Potassium (3.5-5.1) mmol/L Chloride (98-107) mmol/L Carbon Dioxide (22-30) mmol/L Anion Gap mmol/L BUN (9-20) mg/dL Creatinine (0.66-1.25) mg/dL Est GFR (MDRD) Af Amer (>60 ml/min/1.73 sqM) Est GFR (MDRD) Non-Af (>60 ml/min/1.73 sqM) Glucose (74-99) mg/dL Calcium (8.4-10.2) mg/dL Magnesium (1.6-2.3) mg/dL Total Bilirubin (0.2-1.3) mg/dL AST (17-59) U/L ALT (21-72) U/L Alkaline Phosphatase (38-126) U/L Total Creatine Kinase (55-170) U/L CK-MB (CK-2) (0.0-2.4) ng/mL CK-MB (CK-2) Rel Index Troponin I (0.000-0.034) ng/mL Total Protein (6.3-8.2) g/dL Albumin (3.5-5.0) g/dL TSH (0.465-4.680) mIU/L Free T4 (0.78-2.19) ng/dL Free T3 pg/mL (2.8-5.3) pg/ml - Radiology Data Radiology results: image reviewed (Chest x-ray shows no acute process) Disposition Clinical Impression: Palpitations Disposition: HOME SELF-CARE Condition: Stable Instructions: Palpitations (ED) Additional Instructions: Please follow-up with your consumer experience consultant this week, call in the morning. Please also follow-up with primary care physician. Consider Holter monitor. Return for increased heart rate, pain, difficulty breathing, worsening symptoms or other concerns. Referrals: Noel Nieves DO [Primary Care Provider] - 1-2 days Hans Wong MD [STAFF PHYSICIAN] - 1-2 days
--- NOTE | 2016-08-29 23:26 | XR ---
EXAMINATION TYPE: XR chest 1V portable DATE OF EXAM: 08/29/2016 11:10 PM COMPARISON: 08/28/2016 HISTORY: Dysrhythmia, palpitations TECHNIQUE: Single frontal view of the chest is obtained. FINDINGS: Chronic lung changes are suggested. There is no focal air space opacity, pleural effusion, or pneumothorax seen. Mild cardiomegaly and p ostsurgical changes of sternotomy.. The osseous structures are intact. IMPRESSION: 1. No acute process. 2. No significant interval change. 3. Chronic lung changes.
[2016-08-29 23:37] LABS: Basophils # (A) 0.1 k/uL (0-0.2); Basophils % (A) 1 %; CH 30.3; CHCM 34.8; Eosinophils # (A) 0.1 k/uL (0-0.7); Eosinophils % (A) 2 %; HCT 42.9 % (39.0-53.0); HDW 2.66; HGB 14.4 gm/dL (13.0-17.5); Luc # (Auto) 0.12; Luc % (Auto) 2; Lymphocytes # (A) 1.1 k/uL (1.0-4.8); Lymphocytes % (A) 20 %; MCH 29.5 pg (25.0-35.0); MCHC 33.7 g/dL (31.0-37.0); MCV 87.5 fL (80.0-100.0); Mean Platelet Volume 8.7; Monocytes # (A) 0.5 k/uL (0-1.0); Monocytes % (A) 8 %; Neutrophils # (A) 3.8 k/uL (1.3-7.7); Neutrophils % (A) 67 %; RDW 13.3 % (11.5-15.5); WBC 5.7 k/uL (3.8-10.6); WBC (Perox) 5.67
[2016-08-29 23:46] LABS: ALT 64 U/L (21-72); AST 36 U/L (17-59); Alkaline Phosphatase 82 U/L (38-126); Anion Gap 12 mmol/L; Blood Urea Nitrogen 14 mg/dL (9-20); Calcium 9.3 mg/dL (8.4-10.2); Carbon Dioxide 25 mmol/L (22-30); Chloride 105 mmol/L (98-107); Glucose 136 mg/dL (74-99); Magnesium 1.8 mg/dL (1.6-2.3); Non-African American GFR(MDRD) >60 (>60 ml/min/1.73 sqM); Potassium 3.8 mmol/L (3.5-5.1); Sodium 142 mmol/L (137-145); Total Bilirubin 0.4 mg/dL (0.2-1.3); Total Protein 7.1 g/dL (6.3-8.2)
[2016-08-29 23:53] LABS: Partial Thromboplastin Time 23.5 sec (22.0-30.0); Prothrombin Time 10.4 sec (9.0-12.0)
[2016-08-29 23:56] LABS: Creatine Kinase 154 U/L (55-170)
[2016-08-30 00:09] LABS: Creatine Kinase MB 1.3 ng/mL (0.0-2.4); Troponin I <0.012 ng/mL (0.000-0.034)
[2016-08-30 00:53] VITALS: BP 121/57; PULSE 68; RESP 18; TEMP 97.7
== END 2016-08-30 00:53 | disposition home or self-care (01) ==
LOC: EC 22:19
DX: R00.2 Palpitations (principal); Z79.899 Other long term (current) drug therapy; Z79.82 Long term (current) use of aspirin; E78.5 Hyperlipidemia, unspecified; I10 Essential (primary) hypertension; I25.2 Old myocardial infarction; Z95.1 Presence of aortocoronary bypass graft; Z95.5 Presence of coronary angioplasty implant and graft; Z87.891 Personal history of nicotine dependence; Z82.49 Family history of ischemic heart disease and other diseases of the circulatory system
CPT/HCPCS: 36415; 71010; 80053; 82550; 82553; 83735; 84439; 84443; 84481; 84484; 85025; 85610; 85730; 93005; 99285

== ENCOUNTER → 2016-09-21 | Outpatient (CLI) | payer OTHER | END | disposition home or self-care (01) | LOC: RADECHMAIN 12:59 | PROVIDERS: ATTEND Family Medicine | DX: I49.8 Other specified cardiac arrhythmias (principal) | CPT/HCPCS: 93225; 93226 ==

== ENCOUNTER → 2017-03-21 | Outpatient (CLI) | payer OTHER ==
--- NOTE | 2017-03-21 15:51 | XR ---
Left leg and left knee HISTORY: Trauma and pain 2 views of the left leg and 4 images and 3 images of the left knee are submitted There is soft tissue swelling present. Surgical clips are present at the medial aspect of the proxima l left leg. Frontal view is thought to be mildly rotated. Bone mineralization, joint spaces and align ment maintained. IMPRESSION: No fracture or dislocation.
== END | disposition home or self-care (01) ==
LOC: RADXRMAIN 14:57
PROVIDERS: ATTEND Family Medicine
DX: S89.92XA Unspecified injury of left lower leg, initial encounter (principal)

== ENCOUNTER → 2017-04-06 | Outpatient (CLI) | payer OTHER ==
--- NOTE | 2017-04-06 16:32 | US ---
EXAMINATION TYPE: US venous doppler duplex LE LT DATE OF EXAM: 04/06/2017 4:19 PM COMPARISON: NONE CLINICAL HISTORY: Hematoma lower left leg, S80.10XA. Patient fell between slats of flatbed 1.5 weeks ago and c/o pain and palpable left BK area with ankle skin redness. SIDE PERFORMED: Left TECHNIQUE: The lower extremity deep venous system is examined utilizing real time linear array sonog jose with graded compression, doppler sonography and color-flow sonography. VESSELS IMAGED: Common Femoral Vein Deep Femoral Vein Greater Saphenous Vein * Femoral Vein Popliteal Vein Small Saphenous Vein * Proximal Calf Veins (* superficial vessels) Left Leg: Negative for DVT. Primarily simple fluid collection is noted at patient's c/o palpable lef t BK area and size = 5.4 x 5.9 x 2.4cm. Tech findings were called to answering machine at Dr Nieves' Office at exam's end. JJ Grayscale, color doppler, spectral doppler imaging performed of the deep veins of the lower extremiti es. There is normal flow, compressibility, vascular waveforms. IMPRESSION: 1. No evidence of deep venous or necrosis within the left lower extremity. 2. Simple fluid attenuated 5.6 x 2.4 cm avascular fluid collection at the site of the patient's palpa ble abnormality. This most likely represents evolving hematoma or seroma.
== END | disposition home or self-care (01) ==
LOC: RADUSWWP 15:09
PROVIDERS: ATTEND Family Medicine
DX: R60.0 Localized edema (principal); S80.10XA Contusion of unspecified lower leg, initial encounter

== ENCOUNTER 2017-04-23 03:48 | Emergency (ER) | payer OTHER ==
--- NOTE | 2017-04-23 04:15 | ED ---
General Adult HPI - General Chief complaint: Shortness of Breath Stated complaint: Dyspnea Time Seen by Provider: 04/23/17 03:57 Source: patient, RN notes reviewed Mode of arrival: ambulatory Limitations: no limitations - History of Present Illness Initial comments: Patient is a pleasant 46-year-old male presenting to the emergency department with shortness of breath. Patient states he had mild shortness of breath and nausea. Patient states he has had similar symptoms multiple times previously however usually has associated palpitations. Patient does not have palpitations this time. Patient states symptoms were mild and have resolved. Patient is currently symptom-free. Patient took his blood pressure at home and was 135/47. Patient states he did drink several alcoholic beverages yesterday and questions if that could've been a factor. - Related Data Home Medications Medication Instructions Recorded Confirmed Furosemide [Lasix] 40 mg PO DAILY PRN 04/20/16 04/23/17 Nitroglycerin Sl Tabs [Nitrostat] 0.4 mg SUBLINGUAL Q5M PRN 04/20/16 04/23/17 Metoprolol Tartrate [Lopressor] 50 mg PO BID 08/21/16 04/23/17 Aspirin EC [Ecotrin Low Dose] 81 mg PO DAILY 08/28/16 04/23/17 Atorvastatin [Lipitor] 80 mg PO HS 08/28/16 04/23/17 Magnesium Oxide [Mag-Ox] 250 mg PO HS 08/28/16 04/23/17 Previous Rx's Medication Instructions Recorded Clopidogrel [Plavix] 75 mg PO DAILY #30 tab 06/04/15 Diltiazem Cd [Cardizem CD] 180 mg PO DAILY #30 cap.er.24h 08/29/16 Allergies Allergy/AdvReac Type Severity Reaction Status Date / Time No Known Allergies Allergy Verified 08/29/16 23:04 Review of Systems ROS Statement: Those systems with pertinent positive or pertinent negative responses have been documented in the HPI. ROS Other: All systems not noted in ROS Statement are negative. Constitutional: Denies: fever Eyes: Denies: eye pain ENT: Denies: ear pain Respiratory: Reports: dyspnea (Resolved). Denies: cough Cardiovascular: Denies: chest pain Endocrine: Denies: fatigue Gastrointestinal: Reports: nausea. Denies: abdominal pain Genitourinary: Denies: dysuria Musculoskeletal: Denies: back pain Skin: Denies: rash Neurological: Denies: weakness Past Medical History Past Medical History: Chest Pain / Angina, Hyperlipidemia, Hypertension, Myocardial Infarction (LA), Osteoarthritis (OA) Additional Past Medical History / Comment(s): 04-28-15 STEMI -WENT TO [facility]- RECEIVED STENT TO CIRC. GOUT, ARTHRITIS IN HANDS. STATED CAN'T DRINK MILK(GETS SEVERE UPSET STOMACH) BUT CAN EAT CHEESE Last Myocardial Infarction Date:: 04/28/2015 History of Any Multi-Drug Resistant Organisms: None Reported Past Surgical History: Coronary Bypass/CABG, Heart Catheterization With Stent, Orthopedic Surgery Additional Past Surgical History / Comment(s): 04-28-15 HEART CATH,STENT TO CIRC , 06/28/15 4 vessel CABG, RT KNEE ARTHROSOCPY.WISDOM TEETH Past Anesthesia/Blood Transfusion Reactions: No Reported Reaction Additional Past Anesthesia/Blood Transfusion Reaction / Comment(s): patient states he has never had a blood transfusion. Date of Last Stent Placement:: 04/28/15 Past Psychological History: No Psychological Hx Reported Smoking Status: Former smoker Past Alcohol Use History: None Reported Past Drug Use History: Marijuana - Past Family History Father Family Medical History: Congestive Heart Failure (CHF), COPD, Coronary Artery Disease (CAD), Diabetes Mellitus, Myocardial Infarction (LA) Additional Family Medical History / Comment(s): EMPHYSEMA Mother Family Medical History: Skin Disorder Additional Family Medical History / Comment(s): ECTODERMAL DYSPLAGIA, ORTHOPEDIC SX General Exam Limitations: no limitations General appearance: alert, in no apparent distress Head exam: Present: atraumatic Eye exam: Present: normal appearance, PERRL ENT exam: Present: normal oropharynx Neck exam: Present: normal inspection Respiratory exam: Present: normal lung sounds bilaterally. Absent: respiratory distress, wheezes, rales, rhonchi, stridor, chest wall tenderness, accessory muscle use, decreased breath sounds, prolonged expiratory Cardiovascular Exam: Present: regular rate, normal rhythm GI/Abdominal exam: Present: soft. Absent: tenderness Extremities exam: Present: normal inspection. Absent: pedal edema, calf tenderness Back exam: Present: normal inspection Neurological exam: Present: alert Psychiatric exam: Present: normal affect, normal mood Skin exam: Present: normal color Course Vital Signs 04/23/17 04/23/17 03:49 06:41 Temperature 98.5 F Pulse Rate 70 63 Respiratory 20 20 Rate Blood Pressure 137/64 134/62 O2 Sat by Pulse 94 L 95 Oximetry EKG Findings - EKG Comments: EKG Findings:: Normal sinus rhythm 61. ID 166. QRS 104. QT 428. QTC 4:30. Normal axis. Normal QRS. Normal ST-T. Medical Decision Making - Medical Decision Making Patient reevaluated and resting comfortably in bed. Patient remained symptom- free. Patient is comfortable with discharge home. Patient is advised of results and need for close follow-up. - Lab Data Result diagrams: 04/23/17 04:03 04/23/17 04:03 Lab Results 04/23/17 04/23/17 04/23/17 Range/Units 04:03 04:03 04:03 WBC 8.5 (3.8-10.6) k/uL RBC 4.87 (4.30-5.90) m/uL Hgb 14.7 (13.0-17.5) gm/dL Hct 44.2 (39.0-53.0) % MCV 90.7 (80.0-100.0) fL MCH 30.1 (25.0-35.0) pg MCHC 33.3 (31.0-37.0) g/dL RDW 15.1 (11.5-15.5) % Plt Count 203 (150-450) k/uL Neutrophils % 61 % Lymphocytes % 27 % Monocytes % 7 % Eosinophils % 3 % Basophils % 1 % Neutrophils # 5.2 (1.3-7.7) k/uL Lymphocytes # 2.3 (1.0-4.8) k/uL Monocytes # 0.6 (0-1.0) k/uL Eosinophils # 0.3 (0-0.7) k/uL Basophils # 0.1 (0-0.2) k/uL PT (9.0-12.0) sec INR (<1.2) APTT (22.0-30.0) sec D-Dimer (<0.60) mg/L FEU Sodium 139 (137-145) mmol/L Potassium 4.4 (3.5-5.1) mmol/L Chloride 105 (98-107) mmol/L Carbon Dioxide 23 (22-30) mmol/L Anion Gap 11 mmol/L BUN 20 (9-20) mg/dL Creatinine 1.00 (0.66-1.25) mg/dL Est GFR (MDRD) Af Amer >60 (>60 ml/min/1.73 sqM) Est GFR (MDRD) Non-Af >60 (>60 ml/min/1.73 sqM) Glucose 120 H (74-99) mg/dL Calcium 9.7 (8.4-10.2) mg/dL Magnesium 1.6 (1.6-2.3) mg/dL Total Bilirubin 0.7 (0.2-1.3) mg/dL AST 40 (17-59) U/L ALT 60 (21-72) U/L Alkaline Phosphatase 94 (38-126) U/L Total Creatine Kinase 138 (55-170) U/L CK-MB (CK-2) 1.4 (0.0-2.4) ng/mL CK-MB (CK-2) Rel Index 1.0 Troponin I <0.012 (0.000-0.034) ng/mL NT-Pro-B Natriuret Pep pg/mL Total Protein 7.6 (6.3-8.2) g/dL Albumin 4.3 (3.5-5.0) g/dL 04/23/17 04/23/17 Range/Units 04:03 04:03 WBC (3.8-10.6) k/uL RBC (4.30-5.90) m/uL Hgb (13.0-17.5) gm/dL Hct (39.0-53.0) % MCV (80.0-100.0) fL MCH (25.0-35.0) pg MCHC (31.0-37.0) g/dL RDW (11.5-15.5) % Plt Count (150-450) k/uL Neutrophils % % Lymphocytes % % Monocytes % % Eosinophils % % Basophils % % Neutrophils # (1.3-7.7) k/uL Lymphocytes # (1.0-4.8) k/uL Monocytes # (0-1.0) k/uL Eosinophils # (0-0.7) k/uL Basophils # (0-0.2) k/uL PT 10.2 (9.0-12.0) sec INR 1.0 (<1.2) APTT 23.4 (22.0-30.0) sec D-Dimer 1.09 H (<0.60) mg/L FEU Sodium (137-145) mmol/L Potassium (3.5-5.1) mmol/L Chloride (98-107) mmol/L Carbon Dioxide (22-30) mmol/L Anion Gap mmol/L BUN (9-20) mg/dL Creatinine (0.66-1.25) mg/dL Est GFR (MDRD) Af Amer (>60 ml/min/1.73 sqM) Est GFR (MDRD) Non-Af (>60 ml/min/1.73 sqM) Glucose (74-99) mg/dL Calcium (8.4-10.2) mg/dL Magnesium (1.6-2.3) mg/dL Total Bilirubin (0.2-1.3) mg/dL AST (17-59) U/L ALT (21-72) U/L Alkaline Phosphatase (38-126) U/L Total Creatine Kinase (55-170) U/L CK-MB (CK-2) (0.0-2.4) ng/mL CK-MB (CK-2) Rel Index Troponin I (0.000-0.034) ng/mL NT-Pro-B Natriuret Pep 546 pg/mL Total Protein (6.3-8.2) g/dL Albumin (3.5-5.0) g/dL - Radiology Data Radiology results: report reviewed (CT of the chest shows no acute process), image reviewed (Chest x-ray shows no acute process) Disposition Clinical Impression: Dyspnea Disposition: HOME SELF-CARE Condition: Stable Instructions: Dyspnea (ED) Additional Instructions: Please follow-up with your primary care physician in the next day or 2 for recheck. Return for chest pain, difficulty breathing, worsening or changing symptoms or other concerns. Referrals: Noel Nieves DO [Primary Care Provider] - 1-2 days Time of Disposition: 06:47
[2017-04-23 04:31] LABS: Basophils # (A) 0.1 k/uL (0-0.2); Basophils % (A) 1 %; CH 31.2; CHCM 34.6; Eosinophils # (A) 0.3 k/uL (0-0.7); Eosinophils % (A) 3 %; HCT 44.2 % (39.0-53.0); HDW 2.72; HGB 14.7 gm/dL (13.0-17.5); Luc # (Auto) 0.17; Luc % (Auto) 2; Lymphocytes # (A) 2.3 k/uL (1.0-4.8); Lymphocytes % (A) 27 %; MCH 30.1 pg (25.0-35.0); MCHC 33.3 g/dL (31.0-37.0); MCV 90.7 fL (80.0-100.0); Mean Platelet Volume 8.9; Monocytes # (A) 0.6 k/uL (0-1.0); Monocytes % (A) 7 %; Neutrophils # (A) 5.2 k/uL (1.3-7.7); Neutrophils % (A) 61 %; RBC 4.87 m/uL (4.30-5.90); RDW 15.1 % (11.5-15.5); WBC 8.5 k/uL (3.8-10.6); WBC (Perox) 8.47
--- NOTE | 2017-04-23 04:33 | XR ---
EXAM: XR Chest, 2 Views CLINICAL HISTORY: Reason: difficulty breathing TECHNIQUE: Frontal and lateral views of the chest. COMPARISON: No relevant prior studies available. FINDINGS: Lungs: Mild diffuse pulmonary interstitial prominence. Pleural space: Unremarkable. No pneumothorax. Heart: CABG changes noted. Mediastinum: Unremarkable. Bones/joints: Unremarkable. IMPRESSION: No acute findings.
[2017-04-23 04:46] LABS: ALT 60 U/L (21-72); AST 40 U/L (17-59); Alkaline Phosphatase 94 U/L (38-126); Anion Gap 11 mmol/L; Blood Urea Nitrogen 20 mg/dL (9-20); Calcium 9.7 mg/dL (8.4-10.2); Carbon Dioxide 23 mmol/L (22-30); Chloride 105 mmol/L (98-107); Glucose 120 mg/dL (74-99); Magnesium 1.6 mg/dL (1.6-2.3); Non-African American GFR(MDRD) >60 (>60 ml/min/1.73 sqM); Potassium 4.4 mmol/L (3.5-5.1); Sodium 139 mmol/L (137-145); Total Bilirubin 0.7 mg/dL (0.2-1.3); Total Protein 7.6 g/dL (6.3-8.2)
[2017-04-23 05:11] LABS: Creatine Kinase 138 U/L (55-170)
[2017-04-23 05:24] LABS: Creatine Kinase MB 1.4 ng/mL (0.0-2.4); Troponin I <0.012 ng/mL (0.000-0.034)
[2017-04-23 05:33] LABS: Partial Thromboplastin Time 23.4 sec (22.0-30.0); Prothrombin Time 10.2 sec (9.0-12.0)
[2017-04-23] MEDS ORDERED: RX INFO: IV CONTRAST WAS GIVEN 1 EACH MISC MISCELLANE PRN (06:02)
--- NOTE | 2017-04-23 06:38 | CT ---
EXAM: CT Angiography Chest With Intravenous Contrast CLINICAL HISTORY: Reason: pe protocol TECHNIQUE: Axial computed tomographic angiography images of the chest with intravenous contrast using pulmonary embolism protocol. DLP is 817.90 mGy-cm. This CT exam was performed using one or more of the following dose reduction techniques: automated exposure control, adjustment of the mA and/or kV according to patient size, and/or use of iterative reconstruction technique. MIP reconstructed images were created and reviewed. CONTRAST: 350 mL of omnipaque 350 administered intravenously. COMPARISON: No relevant prior studies available. FINDINGS: Pulmonary arteries: Unremarkable. No pulmonary embolism. Aorta: No acute findings. No thoracic aortic aneurysm. Lungs: Unremarkable. No mass. No consolidation. Pleural space: Unremarkable. No significant effusion. No pneumothorax. Heart: Unremarkable. No cardiomegaly. No significant pericardial effusion. No evidence of RV dysfunction. Bones/joints: No acute fracture. No dislocation. Soft tissues: Unremarkable. Lymph nodes: Unremarkable. No enlarged lymph nodes. IMPRESSION: Normal chest CTA. No pulmonary embolism.
[2017-04-23 06:55] VITALS: BP 131/63; PULSE 62; RESP 18; TEMP 97.6
== END 2017-04-23 06:55 | disposition home or self-care (01) ==
LOC: EC 03:48
DX: R06.02 Shortness of breath (principal); R11.0 Nausea; E78.5 Hyperlipidemia, unspecified; I10 Essential (primary) hypertension; M19.90 Unspecified osteoarthritis, unspecified site; I25.2 Old myocardial infarction; Z87.891 Personal history of nicotine dependence; Z79.82 Long term (current) use of aspirin; Z79.899 Other long term (current) drug therapy; Z83.6 Family history of other diseases of the respiratory system; Z86.79 Personal history of other diseases of the circulatory system
CPT/HCPCS: 36415; 93005; 85379; 83880; 80053; 82550; 82553; 83735; 84484; 85025; 85610; 85730; 71020; 71275; 99285; Q9967

== ENCOUNTER → 2017-05-26 | Outpatient (CLI) | payer OTHER ==
--- NOTE | 2017-05-26 13:07 | US ---
EXAMINATION TYPE: US bladder DATE OF EXAM: 05/26/2017 COMPARISON: NONE CLINICAL HISTORY: Benign Prostatic Hyperplasia N40.1. Patient stated has small urinary stream and del ay in voiding when bladder feels full. EXAM MEASUREMENTS: Post Void Residual Volume: 25.6 mL Color Doppler performed to assess ureteral jets. Bilateral Jets seen: Yes Normal Post Void Residual (less than 50ml): Yes Prevoid the bladder post void urinary bladder measurements were as follows 5.0 x 2.4 x 4.0 cm. IMPRESSION: No abnormal post void residual (25.6 mL).
== END | disposition home or self-care (01) ==
LOC: RADUSWWP 12:27
PROVIDERS: ATTEND Family Medicine
DX: N40.1 Benign prostatic hyperplasia with lower urinary tract symptoms (principal)
CPT/HCPCS: 76857

== ENCOUNTER → 2018-03-06 | Outpatient (CLI) | payer OTHER ==
[2018-03-06 10:43] LABS: Appearance,Urine Clear (Clear); Bilirubin,Urine Negative (Negative); Blood,Urine Negative (Negative); Color,Urine Yellow; Glucose,Urine (UA) Negative (Negative); Ketones,Urine Negative (Negative); Leukocyte Esterase,Urine Negative (Negative); Nitrite,Urine Negative (Negative); PH, Urine 5.5 (5.0-8.0); Protein,Urine Negative (Negative); Specific Gravity,Urine 1.018 (1.001-1.035); Urobilinogen,Urine <2.0 mg/dL (<2.0)
[2018-03-06 10:49] LABS: HCT 47.8 % (39.0-53.0); HGB 15.7 gm/dL (13.0-17.5); MCH 29.5 pg (25.0-35.0); MCHC 32.8 g/dL (31.0-37.0); MCV 89.9 fL (80.0-100.0); Mean Platelet Volume 8.4; Platelet Count 176 k/uL (150-450); RBC 5.31 m/uL (4.30-5.90); RDW 13.4 % (11.5-15.5); WBC 5.7 k/uL (3.8-10.6)
[2018-03-06 10:59] LABS: ALT 52 U/L (21-72); AST 34 U/L (17-59); Albumin 4.3 g/dL (3.5-5.0); Alkaline Phosphatase 89 U/L (38-126); Anion Gap 9 mmol/L; Blood Urea Nitrogen 15 mg/dL (9-20); Calcium 9.7 mg/dL (8.4-10.2); Carbon Dioxide 24 mmol/L (22-30); Chloride 109 mmol/L (98-107); Cholesterol 146 mg/dL (<200); Glucose 101 mg/dL (74-99); HDL Cholesterol 48 mg/dL (40-60); LDL Cholesterol,Calculated 77 mg/dL (0-99); Potassium 4.6 mmol/L (3.5-5.1); Sodium 142 mmol/L (137-145); Total Bilirubin 0.5 mg/dL (0.2-1.3); Total Protein 7.5 g/dL (6.3-8.2); Triglycerides 105 mg/dL (<150)
[2018-03-06 17:54] LABS: Hemoglobin A1C 5.7 % (4.0-6.0)
== END | disposition home or self-care (01) ==
LOC: LABWHC1 09:53
PROVIDERS: ATTEND Family Medicine
DX: Z00.00 Encounter for general adult medical examination without abnormal findings (principal); E83.42 Hypomagnesemia
CPT/HCPCS: 36415; 80053; 80061; 81003; 83036; 83735; 84153; 84443; 85027

== ENCOUNTER → 2018-08-31 | Outpatient (CLI) | payer OTHER ==
[2018-08-31 11:11] LABS: HCT 45.4 % (39.0-53.0); HGB 14.9 gm/dL (13.0-17.5); MCH 29.7 pg (25.0-35.0); MCHC 32.7 g/dL (31.0-37.0); MCV 90.8 fL (80.0-100.0); Mean Platelet Volume 7.7; Platelet Count 162 k/uL (150-450); RDW 13.5 % (11.5-15.5); WBC 5.3 k/uL (3.8-10.6)
[2018-08-31 16:23] LABS: Anion Gap 7.6 mmol/L (4.00-12.00); Calcium 9.3 mg/dL (8.7-10.3); Carbon Dioxide 28.4 mmol/L (21.6-31.8); LDL Cholesterol,Calculated 71.4 mg/dL (0.0-131.0); Magnesium 1.6 mg/dL (1.5-2.4); Potassium 4.1 mmol/L (3.5-5.5); VLDL Calculation 17.6 mg/dL (5.00-40.00)
[2018-08-31 17:37] LABS: Hemoglobin A1C 5.6 % (4.0-6.0)
== END | disposition home or self-care (01) ==
LOC: LABWHC1 10:27
PROVIDERS: ATTEND Family Medicine
DX: I10 Essential (primary) hypertension (principal); E78.00 Pure hypercholesterolemia, unspecified; R73.01 Impaired fasting glucose; E66.01 Morbid (severe) obesity due to excess calories
CPT/HCPCS: 36415; 80048; 80061; 83036; 83735; 84439; 84443; 84450; 84460; 85027

== ENCOUNTER → 2018-10-04 | Outpatient (CLI) | payer OTHER | END | disposition home or self-care (01) | LOC: LABWHC1 14:09 | PROVIDERS: ATTEND Family Medicine | DX: Z53.9 Procedure and treatment not carried out, unspecified reason (principal) ==

== ENCOUNTER → 2018-10-04 | Outpatient (CLI) | payer OTHER ==
[2018-10-04 19:22] LABS: ALT 67 U/L (10-49); AST 41 U/L (14-35)
== END | disposition home or self-care (01) ==
LOC: LABWHC1 09-17 12:16
PROVIDERS: ATTEND Family Medicine
DX: R74.8 Abnormal levels of other serum enzymes (principal)
CPT/HCPCS: 36415; 84450; 84460

== ENCOUNTER → 2018-10-24 | Outpatient (CLI) | payer OTHER ==
[2018-10-24 18:37] LABS: ALT 63 U/L (10-49); AST 38 U/L (14-35); Albumin/Globulin Ratio 1.53 (1.60-3.17); Alkaline Phosphatase 90 U/L (41-126); Bilirubin, Conjugated <0.20 mg/dL (0.20-0.40); GGT 28 U/L (0-73); Total Bilirubin 0.4 mg/dL (0.3-1.2); Total Protein 7.6 g/dL (6.2-8.2)
== END | disposition home or self-care (01) ==
LOC: LABWHC1 13:13
PROVIDERS: ATTEND Family Medicine
DX: R74.8 Abnormal levels of other serum enzymes (principal)
CPT/HCPCS: 36415; 80076; 82977

== ENCOUNTER → 2018-12-28 | Outpatient (CLI) | payer OTHER ==
[2018-12-28 22:30] LABS: ALT 67 U/L (10-49); AST 42 U/L (14-35)
== END | disposition home or self-care (01) ==
LOC: LABWHC1 15:26
PROVIDERS: ATTEND Internal Medicine Interventional Cardiology
DX: R74.8 Abnormal levels of other serum enzymes (principal)
CPT/HCPCS: 36415; 84450; 84460

== ENCOUNTER → 2019-01-02 | Outpatient (CLI) | payer OTHER ==
[2019-01-02 16:20] LABS: T4, Free (Free Thyroxine) 0.8 ng/dL (0.80-1.80)
[2019-01-02 16:26] LABS: Thyroid Peroxidase Antibodies <28.0 U/mL (0.0-60.0)
== END | disposition home or self-care (01) ==
LOC: LABWHC1 08:43
PROVIDERS: ATTEND Family Medicine
DX: Z13.29 Encounter for screening for other suspected endocrine disorder (principal); Z83.49 Family history of other endocrine, nutritional and metabolic diseases
CPT/HCPCS: 36415; 84439; 84443; 86376; 86800

== ENCOUNTER → 2019-10-28 | Outpatient (CLI) | payer OTHER | END | disposition home or self-care (01) | DX: M71.21 Synovial cyst of popliteal space [Baker], right knee (principal) ==

== ENCOUNTER → 2020-07-14 | Outpatient (CLI) | payer OTHER | END | disposition home or self-care (01) | LOC: LABPAT 13:37 | PROVIDERS: ATTEND Surgery | DX: U07.1 COVID-19 (principal) | CPT/HCPCS: U0003; C9803 ==

== ENCOUNTER → 2020-07-20 | Outpatient (CLI) | payer OTHER | END | disposition home or self-care (01) | LOC: LABPAT 09:10 | PROVIDERS: ATTEND Surgery | DX: Z01.818 Encounter for other preprocedural examination (principal); K43.2 Incisional hernia without obstruction or gangrene | CPT/HCPCS: 93005 ==

== ENCOUNTER → 2020-07-21 | Day surgery (SDC) | payer OTHER ==
[~2020-07-21] MED LIST: BUPIVACAINE (PF) 0.25% 30 ML VIAL SQ ONE; DEXAMETHASONE SOD PHOSPHATE 4 MG/ML 1 ML VIAL IV ONE; DEXAMETHASONE SOD PHOSPHATE 4 MG/ML 1 ML VIAL ONE; HEPARIN SODIUM,PORCINE 5,000 UNIT/ML 1 ML VIAL SQ PRN; HYDROcodone/APAP 5-325MG 1 EACH TAB ONE; HYDROcodone/APAP 5-325MG 1 EACH TAB PO ONE; KETOROLAC 15 MG/ML 1 ML VIAL ONE; LACTATED RINGERS 1,000 ML IV ONE; LACTATED RINGERS 1,000 ML IV SCH; LIDOCAINE 1% (10MG/ML) FOR IV START INTRADERMA PRN; MIDAZOLAM 2 MG/2 ML VIAL IVP ONE; MIDAZOLAM 2 MG/2 ML VIAL ONE; ONDANSETRON 4 MG/2 ML VIAL IVP ONE; PROPOFOL 10 MG/ML 20 ML VIAL IV ONE; ROCURONIUM 10 MG/ML (10 ML VIAL) IV ONE; ROPIVACAINE 5 MG/ML 30 ML VIAL ONE; SCOPOLAMINE 1.5MG/72HR PATCH TRANSDERM ONE; SUCCINYLCHOLINE CHLORIDE VIAL 200 MG/10 ML VIAL IV ONE; ceFAZolin 3 GM in SODIUM CHLORIDE 0.9% 100 ML IVPB PRN; fentaNYL (PF) 50 MCG/ML 2 ML AMP ONE
--- NOTE | 2020-07-21 13:19 | P.OP ---
Date of Procedure: 07/21/20 Preoperative Diagnosis: Incisional hernia Postoperative Diagnosis: Incisional hernia Procedure(s) Performed: Incisional hernia repair, robotic, with mesh Anesthesia: JAKOB Surgeon: Ángela Araya Pathology: none sent Condition: stable Disposition: same day Indications for Procedure: 49-year-old male presented to the surgery clinic with complaints of bulge in the upper abdomen. On exam, patient was noted to have a previous open heart surgery and a bulge at the inferior portion of the incision. CT of the abdomen and pelvis was performed and this did confirm a incisional hernia at that site. Recommendation was made for a robotic repair based on the patient's symptoms. Risks, benefits and alternatives were provided to the patient. He did provide consent prior to attending the operating suite. Operative Findings: Incisional hernia, noted at inferior base of previous open-heart incision Description of Procedure: The patient was brought to the operating suite and placed in supine position. General anesthetic with endotracheal intubation was performed as per anesthesia team. The right arm was tucked against the body and the footboard was applied. Chlorhexidine was used to prep the skin followed by application of sterile drapes. Timeout was performed to verify correct patient and correct procedure. Patient was confirmed to received perioperative IV antibiotics, bilateral SCDs and subcutaneous heparin for DVT prophylaxis. A 5 mm skin incision was made along the left midaxillary line at pal[place] point and the abdomen was entered under direct visualization using a Visiport. Pneumoperitoneum was achieved. The incisional hernia was clearly visualized containing preperitoneal fat along with the falciform ligament. A 12 mm trocar was placed at the infraumbilical site and 28 mm trochars were placed 11 cm lateral to that site on either side of the abdomen. The da Manuel robot was undocked. The 30 robotic camera was used. A robotic progress and monopolar scissors were inserted through the 8 mm robotic trochars. The hernia defect was noted to contain preperitoneal fat and this was reduced using gentle traction and countertraction method. The falciform ligament was divided using monopolar scissors close to the anterior abdominal wall to create a landing zone for the mesh and to free the hernia contents. At this point the hernia was free of its contents. A [employer] system circular mesh was rolled and introduced the abdominal cavity via the 12 mm trocar. The hernia defect was then closed primarily with a running suture using a Bovie lock by taking once a meter bite on the fascia on either side of the defect. At this point a Aditya Milan device was inserted through the middle of the hernia defect and the stay suture on the mesh was grasped elevate the mesh against the anterior abdominal wall. The mesh was circumferentially sutured to the peritoneum of the anterior abdominal wall using 20V lock without any folds or kinks. Once secured, the robot was then undocked. Laparoscopic camera was reinserted and all trocar sites were examined. Hemostasis was noted to be maintained. The 12 mm trocar site was closed using 2 transfer fascial sutures of 0 Vicryl which were placed under direct visualization using a Aditya Milan device. The pneumoperitoneum was then evacuated and all skin incisions were closed using 4-0 Monocryl suture followed by Dermabond skin glue. The sponge, instrument and needle count were correct 2. Abdominal binder was applied. The patient was extubated and taken to postanesthesia care unit in stable condition.
[2020-07-21 13:26] VITALS: RESP 16; TEMP 97.1
[2020-07-21] MEDS: HYDROmorphone 0.5 MG/0.5 ML SYRINGE IVP PRN ×2 (13:41→13:47)
[2020-07-21 14:34] VITALS: BP 88/47; PULSE 60
--- NOTE | 2020-07-21 14:48 | P.ANPRN ---
Procedure Note - Anesthesia - Nerve Block Performed Bilateral Rectus Abdominis Single Time Out Performed: Yes Date of Procedure: 07/21/20 Procedure Start Time: 11:11 Procedure Stop Time: :17 Location of Patient: PreOp Indication: Acute Post-Operative Pain, Requested by Surgeon Sedation Type: Sedate with meaningful contact maintained Preparation: Sterile Prep Position: Supine Needle Types: Pajunk Needle Gauge: 21 Ultrasound used to visualize needle placement: Yes Ultrasound used to observe medication spread: Yes Blood Aspirated: No Pain Paresthesia on Injection Noted: No Resistance on Injection: Normal Image Stored and Saved: Yes Events: Uneventful and Well Tolerated (ropi .5% 20cc plus dexamethasone 4mg bilaterally)
== END | disposition home or self-care (01) ==
LOC: OR 09:53
PROVIDERS: ATTEND Surgery
DX: K43.2 Incisional hernia without obstruction or gangrene (principal); I10 Essential (primary) hypertension; I25.10 Atherosclerotic heart disease of native coronary artery without angina pectoris; E11.9 Type 2 diabetes mellitus without complications; E78.5 Hyperlipidemia, unspecified; E66.09 Other obesity due to excess calories; M19.90 Unspecified osteoarthritis, unspecified site; F32.9 Major depressive disorder, single episode, unspecified; Z79.82 Long term (current) use of aspirin; Z79.899 Other long term (current) drug therapy; Z95.1 Presence of aortocoronary bypass graft; Z98.890 Other specified postprocedural states; Z68.42 Body mass index [BMI] 45.0-49.9, adult; Z98.818 Other dental procedure status; Z87.891 Personal history of nicotine dependence; Z82.49 Family history of ischemic heart disease and other diseases of the circulatory system; Z83.3 Family history of diabetes mellitus
CPT/HCPCS: 64488; 49654; C1781; J2250; J0330; J1644; J1100; J0690; J2405; J3010; J2795; J1885; J2704; J1170; 86850; 86900; 86901

== ENCOUNTER → 2020-11-23 | Outpatient (CLI) | payer OTHER ==
[2020-11-23 17:35] LABS: Appearance,Urine Clear (Clear); Bilirubin,Urine Negative (Negative); Blood,Urine Negative (Negative); Color,Urine Yellow; Glucose,Urine (UA) Negative (Negative); Ketones,Urine Negative (Negative); Leukocyte Esterase,Urine Negative (Negative); Nitrite,Urine Negative (Negative); PH, Urine 5.5 (5.0-8.0); Protein,Urine Negative (Negative); Specific Gravity,Urine 1.016 (1.001-1.035); Urobilinogen,Urine <2.0 mg/dL (<2.0)
[2020-11-24 03:23] LABS: African American GFR (CKD) 99.8 (60.0-200.0); Albumin 4.7 g/dL (3.80-4.90); Albumin/Globulin Ratio 1.88 (1.60-3.17); Anion Gap 11.8 mmol/L (4.00-12.00); Carbon Dioxide 22.2 mmol/L (21.6-31.8); Chol/HDL Ratio 3.78; Globulin 2.5 g/dL (1.6-3.3); LDL Cholesterol,Calculated 93.2 mg/dL (0.0-131.0); Magnesium 1.6 mg/dL (1.5-2.4); Non-African American GFR(CKD) 86.2 (60.0-200.0); Potassium 4.2 mmol/L (3.5-5.5); Total Bilirubin 0.4 mg/dL (0.2-1.2); Total Protein 7.2 g/dL (6.2-8.2); VLDL Calculation 34.8 mg/dL (5.00-40.00)
[2020-11-24 03:39] LABS: HCT 45.4 % (39.6-50.0); HGB 15.3 g/dL (13.0-17.0); MCH 30.4 pg (27.0-32.0); MCHC 33.7 g/dL (32.0-37.0); MCV 90.3 fL (80.0-97.0); Mean Platelet Volume 12.6 fL (9.5-12.2); Platelet Count 184 X 10*3/uL (140-440); RBC 5.03 X 10*6/uL (4.40-5.60); RDW 12.6 % (11.5-14.5); WBC 9.23 X 10*3/uL (4.50-10.00)
[2020-11-24 03:45] LABS: PSA Annual Screen 0.3 ng/mL (0.0-4.0)
[2020-11-24 05:55] LABS: Hemoglobin A1C 5.8 % (4.0-6.0)
== END | disposition home or self-care (01) ==
LOC: LABWHC1 16:34
PROVIDERS: ATTEND Nurse Practitioner Adult Health
DX: Z00.00 Encounter for general adult medical examination without abnormal findings (principal); E78.5 Hyperlipidemia, unspecified; I25.10 Atherosclerotic heart disease of native coronary artery without angina pectoris; I10 Essential (primary) hypertension
CPT/HCPCS: 84481; 80061; 80053; 84443; 83735; 85027; 81003; 82306; 83036; 36415; G0103

== ENCOUNTER 2021-11-26 19:29 | Observation (INO) | payer BC, OTHER ==
[2021-11-26] MEDS ORDERED: ASPIRIN 81 MG PO STA (19:55)
--- NOTE | 2021-11-26 20:01 | ED ---
General Adult HPI - General Chief complaint: Chest Pain Stated complaint: Chest Pain Time Seen by Provider: 11/26/21 19:38 Source: patient Mode of arrival: wheelchair Limitations: no limitations - History of Present Illness Initial comments: Dictation was produced using [employer] dictation software. please excuse any grammatical, word or spelling errors. Chief Complaint: 51-year-old male presents to the emergency department for chest pain History of Present Illness: 51-year-old mild extensive history of cardiac disease. He is status post circumflex stent and coronary artery bypass. Since yesterday started having some abdominal pain. His abdominal pain resolved on its own. Today started having left anterior chest pain. States rates to his left shoulder but not so much to his jaw or down either of his upper extremities. No associated nausea and clamminess. Patient did take a nitroglycerin which improved the pain. Patient states he does have some mild pain right now. States that it's achy and dull. Denies any cough. No shortness of breath. Not worse with deep inspiration. The ROS documented in this emergency department record has been reviewed and confirmed by me. Those systems with pertinent positive or negative responses have been documented in the HPI. All other systems are other negative and/or noncontributory. PHYSICAL EXAM: General Impression: Alert and oriented x3, not in acute distress HEENT: Normocephalic atraumatic, extra-ocular movements intact, pupils equal and reactive to light bilaterally, mucous membranes moist. Cardiovascular: Heart regular rate and rhythm Chest: Able to complete full sentences, no retractions, no tachypnea Abdomen: abdomen soft, non-tender, non-distended, no organomegaly Musculoskeletal: Pulses present and equal in all extremities, no peripheral edema Motor: no focal deficits noted Neurological: CN II-XII grossly intact, no focal motor or sensory deficits noted Skin: Intact with no visualized rashes Psych: Normal affect and mood ED course: 51-year-old male presents to the emergency department for chest pain concerning for acute coronary syndrome. Vital signs upon arrival are within acceptable limits. EKG does not show any signs of ischemia or infarction. Laboratory evaluation obtained. CBC, coag panel, metabolic panel is unremarkable. Troponin is 0.015. Patient has had negative troponins since 2014 according to her electronic medical record. Patient reevaluated at bedside attendance been given aspirin and states that he still does have a mild pain he is well-appearing. Patient given Nitropaste started on heparin for concerns of unstable angina. Patient be admitted to observation. Patient will be admitted to [facility]. EKG interpretation: Ventricular rate 62, sinus rhythm, GA interval 160, QS 118, QTC 418. No GA prolongation, no QTC prolongation, no ST or T-wave changes noted. EKG compared to 07/20/2020 showing no changes. Overall, this EKG is unremarkable - Related Data Home Medications Medication Instructions Recorded Confirmed Aspirin EC [Ecotrin Low Dose] 81 mg PO DAILY 08/28/16 07/17/20 Atorvastatin [Lipitor] 40 mg PO HS 07/17/20 07/21/20 Diltiazem HCl [Diltiazem HCl 12Hr 120 mg PO QAM 07/17/20 07/17/20 ER] Metoprolol Tartrate [Lopressor] 25 mg PO BID 07/17/20 07/17/20 Ascorbic Acid [Vitamin C] 1,000 mg PO DAILY 11/26/21 11/26/21 Cholecalciferol [Vitamin D3 (25 25 mcg PO DAILY 11/26/21 11/26/21 Mcg = 1000 Iu)] Escitalopram [Lexapro] 10 mg PO DAILY 11/26/21 11/26/21 Naproxen Sodium 550 mg PO BID 11/26/21 11/26/21 Quercetin 1 tab PO DAILY 11/26/21 11/26/21 Zinc Gluconate [Zinc] 50 mg PO DAILY 11/26/21 11/26/21 Allergies Allergy/AdvReac Type Severity Reaction Status Date / Time milk AdvReac SEVERE Verified 11/26/21 21:07 STOMACH UPSET. Review of Systems ROS Statement: Those systems with pertinent positive or pertinent negative responses have been documented in the HPI. ROS Other: All systems not noted in ROS Statement are negative. Past Medical History Past Medical History: Hyperlipidemia, Hypertension, Myocardial Infarction ([place]) Additional Past Medical History / Comment(s): 04-28-15 STEMI -WENT TO [employer]- RECEIVED STENT TO CIRC. GOUT, ARTHRITIS IN HANDS. STATED CAN'T DRINK MILK(GETS SEVERE UPSET STOMACH) BUT CAN EAT CHEESE Last Myocardial Infarction Date:: 04/28/2015 History of Any Multi-Drug Resistant Organisms: None Reported Past Surgical History: Coronary Bypass/CABG, Heart Catheterization With Stent, Orthopedic Surgery Additional Past Surgical History / Comment(s): 04-28-15 HEART CATH,STENT TO CIRC, 06/28/15 4 vessel CABG, RT KNEE ARTHROSOCPY.WISDOM TEETH Past Anesthesia/Blood Transfusion Reactions: No Reported Reaction Additional Past Anesthesia/Blood Transfusion Reaction / Comment(s): patient states he has never had a blood transfusion. Date of Last Stent Placement:: 04/28/15 Past Psychological History: Anxiety, Depression Smoking Status: Never smoker Past Alcohol Use History: Rare Past Drug Use History: None Reported - Past Family History Father Family Medical History: Congestive Heart Failure (CHF), COPD, Coronary Artery Disease (CAD), Diabetes Mellitus, Myocardial Infarction ([place]) Additional Family Medical History / Comment(s): EMPHYSEMA Mother Family Medical History: Skin Disorder Additional Family Medical History / Comment(s): ECTODERMAL DYSPLAGIA General Exam Limitations: no limitations Course Vital Signs 11/26/21 11/26/21 19:31 20:09 Temperature 98.5 F Pulse Rate 71 54 L Respiratory 18 18 Rate Blood Pressure 143/90 131/74 O2 Sat by Pulse 96 96 Oximetry Medical Decision Making - Lab Data Result diagrams: 11/26/21 20:05 11/26/21 20:05 Lab Results 11/26/21 11/26/21 11/26/21 Range/Units 20:05 20:05 20:05 WBC 7.3 (3.8-10.6) k/uL RBC 4.79 (4.30-5.90) m/uL Hgb 15.2 (13.0-17.5) gm/dL Hct 44.5 (39.0-53.0) % MCV 92.9 (80.0-100.0) fL MCH 31.8 (25.0-35.0) pg MCHC 34.2 (31.0-37.0) g/dL RDW 13.3 (11.5-15.5) % Plt Count 169 (150-450) k/uL MPV 9.2 Neutrophils % 54 % Lymphocytes % 33 % Monocytes % 6 % Eosinophils % 4 % Basophils % 1 % Neutrophils # 4.0 (1.3-7.7) k/uL Lymphocytes # 2.4 (1.0-4.8) k/uL Monocytes # 0.4 (0-1.0) k/uL Eosinophils # 0.3 (0-0.7) k/uL Basophils # 0.1 (0-0.2) k/uL PT 10.9 (9.0-12.0) sec INR 1.0 (<1.2) APTT 23.8 (22.0-30.0) sec Sodium 140 (137-145) mmol/L Potassium 4.3 (3.5-5.1) mmol/L Chloride 106 (98-107) mmol/L Carbon Dioxide 24 (22-30) mmol/L Anion Gap 10 mmol/L BUN 20 (9-20) mg/dL Creatinine 0.85 (0.66-1.25) mg/dL Est GFR (CKD-EPI)AfAm >90 (>60 ml/min/1.73 sqM) Est GFR (CKD-EPI)NonAf >90 (>60 ml/min/1.73 sqM) Glucose 105 H (74-99) mg/dL Calcium 9.5 (8.4-10.2) mg/dL Magnesium 1.8 (1.6-2.3) mg/dL Total Bilirubin 0.7 (0.2-1.3) mg/dL AST 46 (17-59) U/L ALT 49 (4-49) U/L Alkaline Phosphatase 64 (38-126) U/L Troponin I (0.000-0.034) ng/mL Total Protein 7.7 (6.3-8.2) g/dL Albumin 4.3 (3.5-5.0) g/dL 11/26/21 Range/Units 20:05 WBC (3.8-10.6) k/uL RBC (4.30-5.90) m/uL Hgb (13.0-17.5) gm/dL Hct (39.0-53.0) % MCV (80.0-100.0) fL MCH (25.0-35.0) pg MCHC (31.0-37.0) g/dL RDW (11.5-15.5) % Plt Count (150-450) k/uL MPV Neutrophils % % Lymphocytes % % Monocytes % % Eosinophils % % Basophils % % Neutrophils # (1.3-7.7) k/uL Lymphocytes # (1.0-4.8) k/uL Monocytes # (0-1.0) k/uL Eosinophils # (0-0.7) k/uL Basophils # (0-0.2) k/uL PT (9.0-12.0) sec INR (<1.2) APTT (22.0-30.0) sec Sodium (137-145) mmol/L Potassium (3.5-5.1) mmol/L Chloride (98-107) mmol/L Carbon Dioxide (22-30) mmol/L Anion Gap mmol/L BUN (9-20) mg/dL Creatinine (0.66-1.25) mg/dL Est GFR (CKD-EPI)AfAm (>60 ml/min/1.73 sqM) Est GFR (CKD-EPI)NonAf (>60 ml/min/1.73 sqM) Glucose (74-99) mg/dL Calcium (8.4-10.2) mg/dL Magnesium (1.6-2.3) mg/dL Total Bilirubin (0.2-1.3) mg/dL AST (17-59) U/L ALT (4-49) U/L Alkaline Phosphatase (38-126) U/L Troponin I 0.015 (0.000-0.034) ng/mL Total Protein (6.3-8.2) g/dL Albumin (3.5-5.0) g/dL Critical Care Time Critical Care Time: Yes Total Critical Care Time: 33 Disposition Clinical Impression: Unstable angina Disposition: ADMITTED IP TO THIS [facility] Condition: Serious Referrals: Noel Nieves DO [Primary Care Provider] - 1-2 days Decision Time: 21:16
[2021-11-26 20:13] LABS: Basophils # (A) 0.1 k/uL (0-0.2); Basophils % (A) 1 %; Eosinophils # (A) 0.3 k/uL (0-0.7); Eosinophils % (A) 4 %; HCT 44.5 % (39.0-53.0); HGB 15.2 gm/dL (13.0-17.5); Lymphocytes # (A) 2.4 k/uL (1.0-4.8); Lymphocytes % (A) 33 %; MCH 31.8 pg (25.0-35.0); MCHC 34.2 g/dL (31.0-37.0); MCV 92.9 fL (80.0-100.0); Mean Platelet Volume 9.2; Monocytes # (A) 0.4 k/uL (0-1.0); Monocytes % (A) 6 %; Neutrophils % (A) 54 %; Platelet Count 169 k/uL (150-450); RBC 4.79 m/uL (4.30-5.90); RDW 13.3 % (11.5-15.5); WBC 7.3 k/uL (3.8-10.6)
[2021-11-26 20:21] LABS: ALT 49 U/L (4-49); AST 46 U/L (17-59); African American GFR (CKD) >90 (>60 ml/min/1.73 sqM); Albumin 4.3 g/dL (3.5-5.0); Alkaline Phosphatase 64 U/L (38-126); Anion Gap 10 mmol/L; Blood Urea Nitrogen 20 mg/dL (9-20); Calcium 9.5 mg/dL (8.4-10.2); Carbon Dioxide 24 mmol/L (22-30); Chloride 106 mmol/L (98-107); Glucose 105 mg/dL (74-99); Magnesium 1.8 mg/dL (1.6-2.3); Non-African American GFR(CKD) >90 (>60 ml/min/1.73 sqM); Potassium 4.3 mmol/L (3.5-5.1); Sodium 140 mmol/L (137-145); Total Bilirubin 0.7 mg/dL (0.2-1.3); Total Protein 7.7 g/dL (6.3-8.2)
--- NOTE | 2021-11-26 20:33 | XR ---
EXAMINATION TYPE: XR chest 2V DATE OF EXAM: 11/26/2021 COMPARISON: 04/23/2017 HISTORY: Chest pain TECHNIQUE: 2 view FINDINGS: There is no heart failure nor confluent pneumonic infiltrate. Costophrenic angles are clear but there are chest leads. There are sternal wires. There is small linear density left midlung field . IMPRESSION: Minimal scarring in the left midlung. No acute lung disease. No change.
[2021-11-26 20:42] LABS: Partial Thromboplastin Time 23.8 sec (22.0-30.0); Prothrombin Time 10.9 sec (9.0-12.0)
[2021-11-26] MEDS ORDERED: HEPARIN SODIUM 1,000 UN/ML (10ML VL) IV PRN (20:59)
[2021-11-26] MEDS ORDERED: HEPARIN SODIUM 1,000 UN/ML (10ML VL) IV ONE (20:59)
[2021-11-26] MEDS ORDERED: NITROGLYCERIN OINT 1 INCH/GM PACKET TOPICAL STA (21:00)
[2021-11-26] MEDS ORDERED: HEPARIN SOD,PORK IN 0.45% NACL 25,000 UNIT in 0.45% NACL 1 250ML.BAG IV SCH (21:00)
[2021-11-26] MEDS ORDERED: NITROGLYCERIN SL TABS 0.4 MG TAB SUBLINGUAL PRN (21:13)
--- NOTE | 2021-11-27 01:11 | P.HPIM ---
History of Present Illness H&P Date: 11/26/21 Chief Complaint: Chest pain 51 Male with history of CAD status post CABG quadruple bypass Patient comes in complaining of left-sided chest pain he described it as heavy feeling dull pain 8 out of 10 in severity and nonradiating associated with feeling nauseous without any shortness of breath no profuse sweating palpitations no dizziness improved after taking nitro pill the whole scenario felt like his prior heart attacks for which she decided to come into the hospital for evaluation. Pain started while resting doing nothing he denies any exercise intolerance denies any trauma to the chest denies any recent travel designs any recent hospitalization denies any diabetes cancer denies any history of blood clots In the ED initial workup showed negative troponin, no acute ST changes on EKG Patient admitted for cardiology evaluation Patient denies any smoking, he quit marijuana but month ago, denies any heavy alcohol Review of Systems Pertinent positives as noted in HPI. 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 GOUT, ARTHRITIS IN HANDS. STATED CAN'T DRINK MILK(GETS SEVERE UPSET STOMACH) BUT CAN EAT CHEESE Last Myocardial Infarction Date:: 04/28/2015 History of Any Multi-Drug Resistant Organisms: None Reported Past Surgical History: Coronary Bypass/CABG, Heart Catheterization With Stent, Orthopedic Surgery Additional Past Surgical History / Comment(s): 04-28-15 HEART CATH,STENT TO CIRC, 06/28/15 4 vessel CABG, RT KNEE ARTHROSOCPY.WISDOM TEETH Past Anesthesia/Blood Transfusion Reactions: No Reported Reaction Additional Past Anesthesia/Blood Transfusion Reaction / Comment(s): patient states he has never had a blood transfusion. Date of Last Stent Placement:: 04/28/15 Past Psychological History: Anxiety, Depression Smoking Status: Never smoker Past Alcohol Use History: Rare Past Drug Use History: None Reported - Past Family History Father Family Medical History: Congestive Heart Failure (CHF), COPD, Coronary Artery Disease (CAD), Diabetes Mellitus, Myocardial Infarction ([place]) Additional Family Medical History / Comment(s): EMPHYSEMA Mother Family Medical History: Skin Disorder Additional Family Medical History / Comment(s): ECTODERMAL DYSPLAGIA Medications and Allergies Home Medications Medication Instructions Recorded Confirmed Type Aspirin EC [Ecotrin Low Dose] 81 mg PO DAILY 08/28/16 11/26/21 History Atorvastatin [Lipitor] 40 mg PO HS 07/17/20 11/26/21 History Diltiazem HCl [Diltiazem HCl 12Hr 120 mg PO DAILY 07/17/20 11/26/21 History ER] Metoprolol Tartrate [Lopressor] 25 mg PO BID 07/17/20 11/26/21 History Ascorbic Acid [Vitamin C] 1,000 mg PO DAILY 11/26/21 11/26/21 History Cholecalciferol [Vitamin D3 (25 25 mcg PO DAILY 11/26/21 11/26/21 History Mcg = 1000 Iu)] Escitalopram [Lexapro] 10 mg PO DAILY 11/26/21 11/26/21 History Naproxen Sodium 550 mg PO BID 11/26/21 11/26/21 History Quercetin 1 tab PO DAILY 11/26/21 11/26/21 History Zinc Gluconate [Zinc] 50 mg PO DAILY 11/26/21 11/26/21 History Allergies Allergy/AdvReac Type Severity Reaction Status Date / Time milk AdvReac SEVERE Verified 11/26/21 21:07 STOMACH UPSET. Physical Exam Vitals: Vital Signs Temp Pulse Resp BP Pulse Ox 11/27/21 00:29 62 18 110/67 95 11/26/21 23:00 55 L 18 111/70 95 11/26/21 22:28 66 18 127/72 95 11/26/21 21:25 50 L 18 140/62 96 11/26/21 20:09 54 L 18 131/74 96 11/26/21 19:31 98.5 F 71 18 143/90 96 Intake and Output 11/26/21 11/26/21 11/27/21 14:59 22:59 06:59 Other: Weight 125.645 kg Constitutional: No acute distress, conversant, pleasant Eyes: Anicteric sclerae, moist conjunctiva, Pupils equal round reactive to light ENMT: NC/AT Oropharynx clear, no erythema, or exudates Neck: Supple, FROM, no masses, or JVD No carotid bruits No thyromegaly Lungs: Clear to auscultation Clear to percussion Normal respiratory effort, no accessory muscle use Cardiovascular: Heart regular in rate and rhythm, No murmurs, gallops, or rubs No peripheral edema Abdominal: Soft Nontender, no guarding, rebound or rigidity Abdomen moving with respiration Normoactive bowel sounds No hepatomegaly, No splenomegaly No palpable mass No abdominal wall hernia noted Skin: Normal temperature, tone, texture, turgor No induration No subcutaneous nodules No rash, lesions No ulcers Extremities: No digital cyanosis No clubbing Pedal pulses intact and symmetrical Radial pulses intact and symmetrical No calf tenderness Psychiatric: Alert and oriented to person, place and time Appropriate affect fair judgement Neuro Muscles Strength 5/5 in all 4 extremities Sensation to light touch grossly present throughout Cranial nerves II-XII grossly intact No focal sensory deficits Lymphatics: no palpable cervical or supraclavicular , or inguinal lymph nodes Results CBC & Chem 7: 11/26/21 20:05 11/26/21 20:05 Labs: Abnormal Lab Results - Last 24 Hours (Table) 11/26/21 Range/Units 20:05 Glucose 105 H (74-99) mg/dL Assessment and Plan Assessment: Atypical chest pain rule out ACS Resume beta keya, statin, aspirin Trend troponins EKG no acute ST changes Cardiology consult cardiac monitor technician Pain control with nitro when necessary Monitor vital signs On heparin drip Full code DVT prophylaxis currently on heparin drip per ACS protocol Anticipated length of stay less than 2 midnights
[2021-11-27] MEDS: METOPROLOL TARTRATE 25 MG TAB PO SCH ×2 (01:53→08:52)
[2021-11-27 08:59] VITALS: BP 107/55; PULSE 65; RESP 16; TEMP 98.2
[2021-11-27] MEDS ORDERED: ASPIRIN 325 MG TAB PO SCH (09:00)
[2021-11-27] MEDS ORDERED: DILTIAZEM CD 120 MG CAP.ER.24H PO SCH (09:00)
[2021-11-27] MEDS ORDERED: ASPIRIN 81 MG PO SCH (09:00)
[2021-11-27] MEDS ORDERED: ISOSORBIDE MONONITRATE ER 30 MG TAB.ER.24H PO SCH (09:00)
[2021-11-27] MEDS ORDERED: ESCITALOPRAM 10 MG TAB PO SCH (09:00)
[2021-11-27 09:38] LABS: Chol/HDL Ratio 2.97 Ratio
--- NOTE | 2021-11-27 10:36 | CONS ---
CONSULTATION This is a 51-year-old obese gentleman with a history of hypertension, hyperlipidemia, CAD who presented with acute inferior IN in 2014, underwent stenting of obtuse marginal and subsequently had repeat hospitalization, which revealed a significant lesion in the LAD, and he went on to have aortocoronary bypass surgery performed sometime in June of 2015. Since then he has done well. He sees Dr. Wong in the outpatient setting, had a stress test more than a year ago which was normal. He comes into the hospital, complains of left lateral and abdominal discomfort that then migrated to the left lateral chest. The quality is very atypical, transient in nature. EKG is unremarkable. Troponins are normal. He is resting comfortably without symptoms. PAST MEDICAL HISTORY: 1. CAD with prior inferior IN and bypass surgery. 2. Hypertension. 3. Hypercholesterolemia. 4. Obesity. 5. History of some arthroscopic surgery in the knee. MEDICATIONS: Medications at home include Lipitor 40 mg daily, aspirin 81 daily, metoprolol tartrate 25 mg b.i.d., and some supplements. PHYSICAL EXAMINATION: On examination, blood pressure is 118/70. Pulse rate is 56 per minute, regular HEENT unremarkable. Fundus was not examined by me. Neck is supple. No JVD. I do not hear a carotid bruit. There is no thyromegaly. Heart exam reveals S1, S2 heard normally. No significant rub, murmur or gallop. Lungs reveal diminished air entry. Abdomen is soft, nontender. Lower extremities reveal normal pulses. No edema. Central nervous system is normal. EKG revealed unremarkable sinus bradycardia. Laboratory data revealed that troponins are normal. IMPRESSION: 1. Atypical chest pain. 2. Coronary artery disease with prior bypass surgery. 3. Hypertension. 4. Hyperlipidemia. 5. Obesity. RECOMMENDATIONS: I am recommending that we add Imdur 30 mg daily to his regimen, increase activity, discharge him today, and he will see Dr. Wong in about a week. We will consider outpatient stress testing. Patient's pain is atypical, does not require any immediate cardiac workup at this time. MMODL / IJN: [id number] /
[2021-11-27] MEDS ORDERED: ATORVASTATIN 40 MG TAB PO SCH (21:00)
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
== END 2021-11-27 12:10 | disposition home or self-care (01) ==
LOC: EC 19:29 → 6NMEDSUR 21:13 → 3SCARD 11-27 02:01
PROVIDERS: ADMIT Internal Medicine; ATTEND Internal Medicine
DX: R07.89 Other chest pain (principal); R10.9 Unspecified abdominal pain; R11.0 Nausea; E78.5 Hyperlipidemia, unspecified; I10 Essential (primary) hypertension; I25.2 Old myocardial infarction; M10.9 Gout, unspecified; I25.10 Atherosclerotic heart disease of native coronary artery without angina pectoris; E78.00 Pure hypercholesterolemia, unspecified; E66.9 Obesity, unspecified; Z68.41 Body mass index [BMI] 40.0-44.9, adult; M19.042 Primary osteoarthritis, left hand; M19.041 Primary osteoarthritis, right hand; F32.A Depression, unspecified; F41.9 Anxiety disorder, unspecified; Z95.1 Presence of aortocoronary bypass graft; Z79.82 Long term (current) use of aspirin; Z79.899 Other long term (current) drug therapy; Z79.1 Long term (current) use of non-steroidal anti-inflammatories (NSAID); Z91.011 Allergy to milk products; Z83.3 Family history of diabetes mellitus; Z82.49 Family history of ischemic heart disease and other diseases of the circulatory system; Z82.5 Family history of asthma and other chronic lower respiratory diseases; Z84.0 Family history of diseases of the skin and subcutaneous tissue
CPT/HCPCS: 96376; 96365; 96366 ×2; 99291; 36415; 93005; 80061; 80053; 83735; 84484 ×2; 85025; 85610; 85730 ×2; 71046; G0378 ×3; J1644 ×2